=== PATIENT | female | born 1990 ===

== ENCOUNTER 2016-05-22 09:58 | Emergency (ER) | payer OTHER ==
[2016-05-22 10:04] VITALS: TEMP 98.7; O2SAT 99; BMI 35.5
[2016-05-22 10:15] VITALS: RESP 18
[2016-05-22] MEDS ORDERED: Sodium Chloride 0.9% 1,000 ML IV STA (10:52)
--- NOTE | 2016-05-22 11:01 | ED PDOC ---
HPI: Headache Time Seen by Provider: 05/22/16 10:00 Chief Complaint (Nursing): Headache Chief Complaint (Provider): Headache History Per: Patient History/Exam Limitations: no limitations Onset/Duration Of Symptoms: Days Current Symptoms Are (Timing): Still Present Severity: Moderate Quality: "Pain" Preceeding Symptoms: None Additional Complaint(s): Patient is a 26 year old female who presents to ED for dizziness with headache, nausea and abdominal pain for 1 week. Patient denies fever, vomiting or diarrhea. States unchanged PO intake. Patient notes history of dizziness in the past but normally with spontaneous resolution. Of notes, patient has a history of anemia with blood transfusion. Past Medical History Reviewed: Historical Data, Nursing Documentation, Vital Signs Vital Signs: Last Vital Signs Temp 98.7 F 05/22/16 10:03 Pulse 74 05/22/16 10:03 Resp 18 05/22/16 10:10 BP 116/58 L 05/22/16 10:03 Pulse Ox 99 05/22/16 10:03 - Medical History PMH: Anemia, Anxiety, Depression, Hypothyroidism Denies: Chronic Kidney Disease - Surgical History Surgical History: - Family History Family History: States: Unknown Family Hx, Hypertension - Living Arrangements Living Arrangements: With Family - Social History Current smoker - smoking cessation education provided: No (Quit 1 week ago ) Alcohol: None Drugs: Denies - Immunization History Hx Tetanus Toxoid Vaccination: No Hx Influenza Vaccination: No Hx Pneumococcal Vaccination: No - Home Medications Home Medications: Ambulatory Orders Medication Instructions Recorded Sertraline HCl [Zoloft] 50 mg PO DAILY 09/25/14 Docusate Sodium [Colace] 100 mg PO BID #30 sgl 09/26/14 Ferrous Sulfate 325 mg PO BID #60 tab 09/26/14 Ferrous Sulfate 325 mg PO BID #20 tablet 05/03/15 Penicillin VK [Penicillin VK Tab] 250 mg PO Q8 #15 tab 08/27/15 Famotidine [Pepcid] 20 mg PO Q12 #20 tab 09/02/15 Erythromycin 0.5% [Ilytocin] 1 inch OS HS #1 tube 12/07/15 Non-Formulary 1 ea OS HS #1 ea 12/07/15 Valacyclovir HCl [Valtrex] 1,000 mg PO TID #21 tablet 12/07/15 predniSONE [Prednisone] 60 mg PO DAILY 10 Days 12/07/15 Sertraline [Zoloft] 100 mg PO DAILY #7 tab 03/05/16 - Allergies Allergies/Adverse Reactions: Allergies Allergy/AdvReac Type Severity Reaction Status Date / Time No Known Allergies Allergy Verified 05/22/16 10:12 Review of Systems ROS Statement: Except As Marked, All Systems Reviewed And Found Negative Constitutional: Negative for: Fever, Sweats, Weakness Eyes: Negative for: Vision Change Cardiovascular: Negative for: Chest Pain, Palpitations Respiratory: Negative for: Shortness of Breath Gastrointestinal: Positive for: Nausea, Abdominal Pain. Negative for: Vomiting Genitourinary Female: Negative for: Dysuria, Hematuria Neurological: Positive for: Headache, Dizziness. Negative for: Weakness, Numbness Physical Exam - Reviewed Nursing Documentation Reviewed: Yes Vital Signs Reviewed: Yes - Physical Exam Appears: Positive for: Non-toxic, No Acute Distress Head Exam: Positive for: ATRAUMATIC Skin: Positive for: Normal Color, Warm Eye Exam: Positive for: Normal appearance, EOMI, PERRL Neck: Positive for: Normal, Painless ROM Cardiovascular/Chest: Positive for: Regular Rate, Rhythm. Negative for: Murmur Respiratory: Positive for: Normal Breath Sounds. Negative for: Respiratory Distress Gastrointestinal/Abdominal: Positive for: Normal Exam. Negative for: Tenderness , Distended Back: Positive for: Normal Inspection Extremity: Positive for: Normal ROM. Negative for: Pedal Edema, Calf Tenderness Neurologic/Psych: Positive for: Alert, administrative office specialist II-XII, Oriented, Gait (stable). Negative for: Motor/Sensory Deficits, Facial Droop - Laboratory Results Result Diagrams: 05/22/16 11:23 05/22/16 11:23 - ECG ECG: Positive for: Interpreted By Me ECG Rhythm: Positive for: Normal QRS, Normal ST Segment, Sinus Rhythm Rate: 67 O2 Sat by Pulse Oximetry: 99 (RA) Pulse Ox Interpretation: Normal Medical Decision Making Medical Decision Making: Time: 1050 Initial impression: Dizziness rule out anemia, electrolyte disturbance Initial plan: -- EKG -- CMP -- Urine preg -- Urine dip -- CBC -- Antivert, NSF and Zofran Time: 1200 Anemic: Hgb 10.5 Time: 1300 Patient on re-evaluation states she is feeling significantly better. Denies dizziness at this time. Orthostatics negative. Patient instructed to take Iron supplement and to follow up with the clinic. pt does note upon dc that a baby bottle banged into her head a few days ago however pt head is normocophealic, no hematoma or sign of injury. pt is neurologically intact. Scribe Attestation: Documented by Marie Loera acting as a scribe for Isidra Lewis MD MD Scribe Attestation: All medical record entries made by the Scribe were at my direction and personally dictated by me. I have reviewed the chart and agree that the record accurately reflects my personal performance of the history, physical exam, medical decision making, and the department course for this patient. I have also personally directed, reviewed, and agree with the discharge instructions and disposition. Disposition - Clinical Impression Clinical Impression: Anemia, iron deficiency, Dizziness - Patient ED Disposition Is Patient to be Admitted: No Counseled Patient/Family Regarding: Studies Performed, Diagnosis, Need For Followup - Disposition Referrals: [facility] [Outside] [facility] [Outside] FAMILY PROVIDER,NO [Primary Care Provider] - Disposition: Routine/Home Disposition Time: 12:00 Condition: GOOD Additional Instructions: follow up with your primary doctor in 2 days. take iron tablets for anemia. return to the ED with any worsening or concerning symptoms. Instructions: Dizziness (ED), Anemia (ED)
[2016-05-22 11:31] LABS: BASO % 0.7 % (0.0-2.0); EOS # 0.1 K/uL (0.0-0.7); EOS % 2.1 % (0.0-4.0); HEMATOCRIT 32.4 % (34.0-47.0); LYMPH # 1.9 K/uL (1.0-4.3); LYMPH % 31.2 % (20.0-40.0); MEAN CELL VOLUME 77.6 fl (81.0-99.0); MEAN CORPUSCULAR HEMOGLOBIN 25.2 pg (27.0-31.0); MEAN CORPUSCULAR HGB CONC 32.4 g/dL (33.0-37.0); MEAN PLATELET VOLUME 9.3 fl (7.2-11.7); MONO # 0.5 K/uL (0.0-0.8); MONO % 8.7 % (0.0-10.0); NEUT # 3.5 K/uL (1.8-7.0); NEUT % 57.3 % (50.0-75.0); NRBC % 0.1 % (0.0-0.0); RED CELL DISTRIBUTION WIDTH 15.7 % (11.5-14.5); WHITE BLOOD COUNT 6.1 K/uL (4.8-10.8)
[2016-05-22 11:46] LABS: ALB/GLOB RATIO 1.3 (1.0-2.1); ALKALINE PHOSPHATASE 61 U/L (38-126); ALT/SGPT 27 U/L (9-52); AST/SGOT 37 U/L (14-36); BILIRUBIN,TOTAL 0.8 mg/dl (0.2-1.3); BLOOD UREA NITROGEN 12 mg/dl (7-17); CALCIUM 9.5 mg/dL (8.4-10.2); CARBON DIOXIDE 26 mmol/L (22-30); CHLORIDE 103 mmol/L (98-107); GFR AFRICAN-AMERICAN > 60; GLUCOSE,RANDOM 92 mg/dL (65-105); POTASSIUM 3.9 MMOL/L (3.6-5.0); SODIUM 138 mmol/l (132-148); TOTAL PROTEIN 7.9 G/DL (6.3-8.2)
[2016-05-22 13:10] VITALS: BP 110/56
[2016-05-22 13:19] VITALS: PULSE 67
--- NOTE | 2016-05-23 08:06 | CARD ---
APPROVED REPORT EKG Measurement Heart [id number] <Conclusion> Normal sinus rhythm Normal ECG
== END 2016-05-22 13:18 | disposition home or self-care (01) ==
LOC: H.ER 09:58
DX: R42 Dizziness and giddiness (principal); D50.9 Iron deficiency anemia, unspecified; E03.9 Hypothyroidism, unspecified; R51 Headache

== ENCOUNTER 2016-11-10 19:55 | Emergency (ER) | payer OTHER ==
[2016-11-10 19:55] VITALS: BMI 35.5
[2016-11-10 20:00] VITALS: RESP 16
--- NOTE | 2016-11-10 20:40 | ED PDOC ---
HPI: Abdomen Time Seen by Provider: 11/10/16 20:04 Chief Complaint (Nursing): Abdominal Pain Chief Complaint (Provider): Abdominal Pain History Per: Patient History/Exam Limitations: no limitations Onset/Duration Of Symptoms: Intermittent Episodes (x 1 week) Current Symptoms Are (Timing): Still Present Associated Symptoms: Nausea, Vomiting Additional Complaint(s): Megan is a 26 y/o female who presents to the ED complaining of lower abdominal pain for 1 week. Pain is intermittent. She does have nausea and vomiting at times. States having chronic anemia so she has intermittent dizziness, which is not a new problem. Not on an iron supplement. Unsure whether or not she could be . Patient has not used any contraception recently. Denies fever, dysuria, and vaginal bleeding. Admits she took Advil for her abdominal pain. No PMD or OBGYN Past Medical History Reviewed: Historical Data, Nursing Documentation, Vital Signs Vital Signs: Last Vital Signs Temp 98.6 F 11/10/16 19:57 Pulse 80 11/10/16 19:57 Resp 16 11/10/16 19:57 BP 125/84 11/10/16 19:57 Pulse Ox 99 11/11/16 00:06 - Medical History PMH: Anemia, Anxiety, Depression, Hypothyroidism Denies: Chronic Kidney Disease - Surgical History Surgical History: Other surgeries: DNC x multiple - Family History Family History: States: Unknown Family Hx, Hypertension - Immunization History Hx Tetanus Toxoid Vaccination: No Hx Influenza Vaccination: No Hx Pneumococcal Vaccination: No - Home Medications Home Medications: Ambulatory Orders Medication Instructions Recorded Sertraline HCl [Zoloft] 50 mg PO DAILY 09/25/14 Docusate Sodium [Colace] 100 mg PO BID #30 sgl 09/26/14 Ferrous Sulfate 325 mg PO BID #60 tab 09/26/14 Ferrous Sulfate 325 mg PO BID #20 tablet 05/03/15 Penicillin VK [Penicillin VK Tab] 250 mg PO Q8 #15 tab 08/27/15 Famotidine [Pepcid] 20 mg PO Q12 #20 tab 09/02/15 Erythromycin 0.5% [Ilytocin] 1 inch OS HS #1 tube 12/07/15 Non-Formulary 1 ea OS HS #1 ea 12/07/15 Valacyclovir HCl [Valtrex] 1,000 mg PO TID #21 tablet 12/07/15 predniSONE [Prednisone] 60 mg PO DAILY 10 Days 12/07/15 Sertraline [Zoloft] 100 mg PO DAILY #7 tab 03/05/16 - Allergies Allergies/Adverse Reactions: Allergies Allergy/AdvReac Type Severity Reaction Status Date / Time No Known Allergies Allergy Verified 11/10/16 20:00 Review of Systems ROS Statement: Except As Marked, All Systems Reviewed And Found Negative Constitutional: Negative for: Fever, Chills Gastrointestinal: Positive for: Nausea, Vomiting, Abdominal Pain Genitourinary Female: Negative for: Dysuria, Vaginal Bleeding Physical Exam - Reviewed Nursing Documentation Reviewed: Yes Vital Signs Reviewed: Yes - Physical Exam Appears: Positive for: Non-toxic, No Acute Distress Head Exam: Positive for: ATRAUMATIC, NORMAL INSPECTION, NORMOCEPHALIC Skin: Positive for: Normal Color, Warm, Dry Eye Exam: Positive for: EOMI, Normal appearance, PERRL Neck: Positive for: Normal, Painless ROM, Supple Cardiovascular/Chest: Positive for: Regular Rate, Rhythm. Negative for: Murmur Respiratory: Positive for: Normal Breath Sounds. Negative for: Accessory Muscle Use, Respiratory Distress Gastrointestinal/Abdominal: Positive for: Normal Exam, Bowel Sounds, Soft. Negative for: Tenderness Back: Positive for: Normal Inspection. Negative for: L CVA Tenderness, R CVA Tenderness, Vertebral Tenderness Extremity: Positive for: Normal ROM. Negative for: Calf Tenderness, Deformity Neurologic/Psych: Positive for: Alert, Oriented, Gait (steady) - Laboratory Results Result Diagrams: 11/10/16 20:50 11/10/16 20:50 - ECG O2 Sat by Pulse Oximetry: 99 (RA) Pulse Ox Interpretation: Normal Medical Decision Making Medical Decision Making: Urine dip positive for * Patient is a 26 y/o female Impression: Abdominal Pain during Differentials include but are not limited to: UTI, ectopic , and threatened miscarriage Time: 20:31 Initial Plan: --BMP -- serum -- test --ED Urine dipstick --CBC --blood type/screen --US OB Transvaginal US Impression: No intrauterine gestation. DDX: Early IUP, missed , ectopic . Scribe Attestation: Documented by Jessica Matute, acting as a scribe for Chriss Harper MD Provider Scribe Attestation: All medical record entries made by the Scribe were at my direction and personally dictated by me. I have reviewed the chart and agree that the record accurately reflects my personal performance of the history, physical exam, medical decision making, and the department course for this patient. I have also personally directed, reviewed, and agree with the discharge instructions and disposition. Disposition - Clinical Impression Clinical Impression: Abdominal pain during - Patient ED Disposition Is Patient to be Admitted: No Doctor Will See Patient In The: Office Counseled Patient/Family Regarding: Studies Performed, Diagnosis, Need For Followup - Disposition Referrals: [facility] [Outside] Disposition: Routine/Home Disposition Time: 00:06 Condition: GOOD Additional Instructions: Return to ER in 2-3 days for recheck. Follow up with your PCP in 3 days. Instructions: Abdominal Pain in (ED)
[2016-11-10 21:04] LABS: BASO % 0.6 % (0.0-2.0); EOS # 0.3 K/uL (0.0-0.7); EOS % 3.4 % (0.0-4.0); HEMATOCRIT 31.5 % (34.0-47.0); LYMPH # 3.1 K/uL (1.0-4.3); LYMPH % 38.4 % (20.0-40.0); MEAN CELL VOLUME 78.6 fl (81.0-99.0); MEAN CORPUSCULAR HEMOGLOBIN 25.7 pg (27.0-31.0); MEAN CORPUSCULAR HGB CONC 32.7 g/dL (33.0-37.0); MONO # 0.5 K/uL (0.0-0.8); MONO % 6.7 % (0.0-10.0); NEUT # 4.1 K/uL (1.8-7.0); NEUT % 50.9 % (50.0-75.0); NRBC % 0.1 % (0.0-0.0); RED CELL DISTRIBUTION WIDTH 16.7 % (11.5-14.5)
[2016-11-10 21:23] LABS: BLOOD UREA NITROGEN 10 mg/dl (7-17); CALCIUM 9.5 mg/dL (8.4-10.2); CARBON DIOXIDE 22 mmol/L (22-30); CHLORIDE 103 mmol/L (98-107); GFR AFRICAN-AMERICAN > 60; GLUCOSE,RANDOM 100 mg/dL (65-105); POTASSIUM 3.5 MMOL/L (3.6-5.0); SODIUM 136 mmol/l (132-148)
--- NOTE | 2016-11-10 23:49 | US ---
EXAM: US First Trimester, Transabdominal CLINICAL HISTORY: 26 years old, female; Pain; Other: Pelvic pain; Gestational age or lmp: Pt unsure; ; Additional info: Lower abd pain TECHNIQUE: Real-time transabdominal obstetrical ultrasound of the maternal pelvis and a first trimester with image documentation. COMPARISON: No relevant prior studies available. FINDINGS: Gestation: No intrauterine gestational sac. Uterus/cervix: Endometrium: 0.5 cm in thickness. Closed cervix. Ovaries: RIGHT ovary: Normal. LEFT ovary: Not visualized. No adnexal masses. Free fluid: No significant free fluid. IMPRESSION: 1. No intrauterine gestation. DDX: Early IUP, missed , ectopic . EXAM: US , Transvaginal CLINICAL HISTORY: 26 years old, female; Pain; Other: Pelvic pain; Gestational age or lmp: Pt unsure; ; Additional info: Lower abd pain TECHNIQUE: Real-time transvaginal obstetrical ultrasound of the maternal pelvis and a first trimester with image documentation. Transvaginal imaging was used for better evaluation of the fetus and adnexa. COMPARISON: No relevant prior studies available. FINDINGS: Gestation: No intrauterine gestational sac. Uterus/cervix: Endometrium: 0.5 cm in thickness. Closed cervix. Ovaries: RIGHT ovary: Normal. LEFT ovary: Not visualized. No adnexal masses. Free fluid: No significant free fluid.
[2016-11-11 00:43] VITALS: BP 122/74; PULSE 81; TEMP 98.3; O2SAT 100
== END 2016-11-11 00:40 | disposition home or self-care (01) ==
LOC: H.ER 19:55
DX: O21.9 Vomiting of pregnancy, unspecified (principal); E03.9 Hypothyroidism, unspecified; F32.9 Major depressive disorder, single episode, unspecified; F41.9 Anxiety disorder, unspecified

== ENCOUNTER 2016-11-14 09:08 | Emergency (ER) | payer OTHER ==
[2016-11-14 09:10] VITALS: O2SAT 98; BMI 33.3
--- NOTE | 2016-11-14 09:28 | ED PDOC ---
HPI: Abdomen Time Seen by Provider: 11/14/16 09:16 Chief Complaint (Nursing): Abdominal Pain History Per: Patient (is brought by EMS because of concerns over whether she is . Patient was seen here several ago where she was found to have a positive but the US did not reveal IUP. She states she was told to return if her pain persisted.) History/Exam Limitations: no limitations Outside of US travel?: No Current Symptoms Are (Timing): Still Present Past Medical History Reviewed: Historical Data, Nursing Documentation, Vital Signs Vital Signs: Last Vital Signs Temp 98.6 F 11/14/16 09:09 Pulse 83 11/14/16 09:09 Resp 20 11/14/16 09:09 BP 120/71 11/14/16 09:09 Pulse Ox 98 11/14/16 11:48 - Medical History PMH: Anemia, Anxiety, Depression, Hypothyroidism Denies: Chronic Kidney Disease - Surgical History Surgical History: No Surg Hx, - Family History Family History: States: Unknown Family Hx, Hypertension - Living Arrangements Living Arrangements: With Family - Immunization History Hx Tetanus Toxoid Vaccination: No Hx Influenza Vaccination: No Hx Pneumococcal Vaccination: No - Home Medications Home Medications: Ambulatory Orders Medication Instructions Recorded Sertraline HCl [Zoloft] 50 mg PO DAILY 09/25/14 Docusate Sodium [Colace] 100 mg PO BID #30 sgl 09/26/14 Ferrous Sulfate 325 mg PO BID #60 tab 09/26/14 Ferrous Sulfate 325 mg PO BID #20 tablet 05/03/15 Penicillin VK [Penicillin VK Tab] 250 mg PO Q8 #15 tab 08/27/15 Famotidine [Pepcid] 20 mg PO Q12 #20 tab 09/02/15 Erythromycin 0.5% [Ilytocin] 1 inch OS HS #1 tube 12/07/15 Non-Formulary 1 ea OS HS #1 ea 12/07/15 Valacyclovir HCl [Valtrex] 1,000 mg PO TID #21 tablet 12/07/15 predniSONE [Prednisone] 60 mg PO DAILY 10 Days 12/07/15 Sertraline [Zoloft] 100 mg PO DAILY #7 tab 03/05/16 - Allergies Allergies/Adverse Reactions: Allergies Allergy/AdvReac Type Severity Reaction Status Date / Time No Known Allergies Allergy Verified 11/14/16 09:13 Review of Systems ROS Statement: Except As Marked, All Systems Reviewed And Found Negative Constitutional: Negative for: Fever, Chills Gastrointestinal: Positive for: Abdominal Pain Physical Exam - Reviewed Nursing Documentation Reviewed: Yes Vital Signs Reviewed: Yes - Physical Exam Appears: Positive for: Well, Non-toxic, No Acute Distress Head Exam: Positive for: ATRAUMATIC, NORMAL INSPECTION, NORMOCEPHALIC Skin: Positive for: Normal Color, Warm, DRY Eye Exam: Positive for: EOMI, Normal appearance, PERRL ENT: Positive for: Normal ENT Inspection Neck: Positive for: Normal, Painless ROM Cardiovascular/Chest: Positive for: Regular Rate, Rhythm Respiratory: Positive for: Normal Breath Sounds. Negative for: Decreased Breath Sounds Gastrointestinal/Abdominal: Positive for: Normal Exam, Bowel Sounds, Soft. Negative for: Tenderness, Distended, Guarding, Rebound Back: Positive for: Normal Inspection Extremity: Positive for: Normal ROM Neurologic/Psych: Positive for: Alert, Oriented - Laboratory Results Result Diagrams: 11/14/16 09:46 11/14/16 09:46 - ECG O2 Sat by Pulse Oximetry: 98 Medical Decision Making Medical Decision Making: past ER visit reviewed. Will repeat labs. case d/w Dr. Madrigal. Will add LFTs and TV US ultrasound report reviewed with Dr. Madrigal and patient. Advised repeat b-hcg in 3 days Disposition - Clinical Impression Clinical Impression: Threatened - Patient ED Disposition Is Patient to be Admitted: No Doctor Will See Patient In The: Office Counseled Patient/Family Regarding: Diagnosis - Disposition [facility] [Outside] Disposition: Routine/Home Disposition Time: 14:00 Condition: STABLE Additional Instructions: REturn to the ER for repeat B-HCG level. Instructions: Threatened Miscarriage (ED) Forms: [employer] (Gambian) - POA Present On Arrival: None
[2016-11-14 09:51] LABS: BASO % 0.7 % (0.0-2.0); EOS # 0.2 K/uL (0.0-0.7); EOS % 3.4 % (0.0-4.0); HEMATOCRIT 33.3 % (34.0-47.0); LYMPH # 2.1 K/uL (1.0-4.3); LYMPH % 30.5 % (20.0-40.0); MEAN CORPUSCULAR HEMOGLOBIN 25.8 pg (27.0-31.0); MEAN CORPUSCULAR HGB CONC 32.7 g/dL (33.0-37.0); MEAN PLATELET VOLUME 8.9 fl (7.2-11.7); MONO # 0.4 K/uL (0.0-0.8); NEUT % 59.4 % (50.0-75.0); NRBC % 0.1 % (0.0-0.0); RED CELL DISTRIBUTION WIDTH 17.4 % (11.5-14.5); WHITE BLOOD COUNT 6.8 K/uL (4.8-10.8)
[2016-11-14 10:00] LABS: BLOOD UREA NITROGEN 7 mg/dl (7-17); CALCIUM 9.3 mg/dL (8.4-10.2); CARBON DIOXIDE 23 mmol/L (22-30); CHLORIDE 105 mmol/L (98-107); GFR AFRICAN-AMERICAN > 60; GLUCOSE,RANDOM 127 mg/dL (65-105); POTASSIUM 3.7 MMOL/L (3.6-5.0); SODIUM 138 mmol/l (132-148)
[2016-11-14 12:21] LABS: ALB/GLOB RATIO 1.4 (1.0-2.1); BILIRUBIN,TOTAL 0.5 mg/dl (0.2-1.3); TOTAL PROTEIN 7.4 G/DL (6.3-8.2)
--- NOTE | 2016-11-14 13:45 | US ---
HISTORY: Per Dr. Madrigal COMPARISON: Comparison made with prior pelvic ultrasound 11/10/2016 TECHNIQUE: Transvaginal sonographic evaluation of the pelvis performed. FINDINGS: Uterus is anteverted measuring s approximately 12.7 by x 7.3 x 5.3 cm. Cm. Of. There is a small approximately 4.7 mm anechoic focus within the endometrial canal that is of uncertain etiology. This could represent small amount of fluid however early gestational sac cannot be excluded. . The possibility of an ectopic also cannot be excluded and therefore followup serial serum beta HCG and serial ultrasound recommended. Right ovary measures approximately 2.4 x 1.8 x 1.0 cm exhibits arterial flow. Small echogenic focus seen within the right ovary measuring approximately largest approximately 6 mm x 7 mm x 4 mm. . There is no posterior acoustic shadowing and this could represent a small resolving hemorrhagic cyst or possibly fat. Followup studies at interval recommended to assess stability. The left ovary measures 2.7 x 3.5 x 1.7 cm and also exhibits arterial flow. IMPRESSION: There is small anechoic fluid collection within the endometrial canal that could represent a very early gestational sac which measures approximately 4.7 mm and is out of range to appropriately date. No evidence of yolk sac or pole. Possibility of an ectopic therefore cannot be excluded on this study. Recommend followup serial serum beta HCG and serial pelvic ultrasounds . . See above discussion for additional details, findings and recommendations.
[2016-11-14 14:47] VITALS: BP 118/75; PULSE 68; RESP 14; TEMP 98
== END 2016-11-14 14:37 | disposition home or self-care (01) ==
LOC: H.ER 09:08
DX: O20.0 Threatened abortion (principal); Z3A.00 Weeks of gestation of pregnancy not specified

== ENCOUNTER 2016-11-16 20:52 | Emergency (ER) | payer OTHER ==
[2016-11-16 20:52] VITALS: BMI 33.3
[2016-11-16 20:55] VITALS: BP 133/85; PULSE 89; RESP 16; TEMP 99.1; O2SAT 100
--- NOTE | 2016-11-16 21:14 | ED PDOC ---
HPI: Abdomen Chief Complaint (Provider): Abdominal Pain History Per: Patient History/Exam Limitations: no limitations Onset/Duration Of Symptoms: Days, Waxing/Waning Outside of US travel?: No Current Symptoms Are (Timing): Intermittent Episodes Severity: Severe Pain Scale Rating Of: 8 Location Of Pain/Discomfort: Suprapubic Quality Of Discomfort: Sharp, Cramping, Other Associated Symptoms: denies: Fever, Chills, Vomiting, Diarrhea Exacerbating Factors: None Alleviating Factors: None Last Menstral Period: unsure : 7 Para: 2 Miscarriage: 1 <Akash Arciniega - Last Filed: 11/17/16 00:27> <Sunil Dai - Last Filed: 11/17/16 05:17> Time Seen by Provider: 11/16/16 21:03 Chief Complaint (Nursing): Abdominal Pain Additional Complaint(s): 26 yo presents to ED c/o lower abdominal pain associated w minimal hematuria. She states concern over ectopic . Pt seen in ED previously, shown to have positive but US did not reveal IUP. She states she was told to return if her pain persisted. Tonight, she states pain/bleeding waxes and wanes, w pain being 8/10 at it's worse. LMP is believed to be sometime in September, but she is unsure as to when. Normal period is regular every month, 4-5 days, 3-5 pads per day. Some nausea, but denies vomiting, diarrhea. Denies fevers/chills, chest pain, SOB, dyspnea, cough, dysuria, or melena. (Akash Arciniega) Supervising Attending Note - Attestation: I have personally seen and examined this patient.: Yes I have fully participated in the care of the patient.: Yes I have reviewed all pertinent clinical information: Yes <Sunil Dai - Last Filed: 11/17/16 05:17> Past Medical History Reviewed: Historical Data, Nursing Documentation, Vital Signs - Medical History PMH: Anemia, Anxiety, Depression, Hypothyroidism Denies: Chronic Kidney Disease - Surgical History Surgical History: - Family History Family History: States: Unknown Family Hx, Hypertension - Immunization History Hx Tetanus Toxoid Vaccination: No Hx Influenza Vaccination: No Hx Pneumococcal Vaccination: No <Akash Arciniega - Last Filed: 11/17/16 00:27> <Sunil Dai - Last Filed: 11/17/16 05:17> Vital Signs: Last Vital Signs Temp 99.1 F 11/16/16 20:53 Pulse 89 11/16/16 20:53 Resp 16 11/16/16 20:53 BP 133/85 11/16/16 20:53 Pulse Ox 100 11/17/16 00:31 - Home Medications Home Medications: Ambulatory Orders Medication Instructions Recorded Sertraline HCl [Zoloft] 50 mg PO DAILY 09/25/14 Docusate Sodium [Colace] 100 mg PO BID #30 sgl 09/26/14 Ferrous Sulfate 325 mg PO BID #60 tab 09/26/14 Ferrous Sulfate 325 mg PO BID #20 tablet 05/03/15 Penicillin VK [Penicillin VK Tab] 250 mg PO Q8 #15 tab 08/27/15 Famotidine [Pepcid] 20 mg PO Q12 #20 tab 09/02/15 Erythromycin 0.5% [Ilytocin] 1 inch OS HS #1 tube 12/07/15 Non-Formulary 1 ea OS HS #1 ea 12/07/15 Valacyclovir HCl [Valtrex] 1,000 mg PO TID #21 tablet 12/07/15 predniSONE [Prednisone] 60 mg PO DAILY 10 Days 12/07/15 Sertraline [Zoloft] 100 mg PO DAILY #7 tab 03/05/16 Acetaminophen [Pain Reliever] 500 mg PO Q4 #30 tablet 11/17/16 - Allergies Allergies/Adverse Reactions: Allergies Allergy/AdvReac Type Severity Reaction Status Date / Time No Known Allergies Allergy Verified 11/14/16 09:13 Review of Systems ROS Statement: Except As Marked, All Systems Reviewed And Found Negative (see HPI) <Akash Arciniega T - Last Filed: 11/17/16 00:27> Physical Exam - Physical Exam Appears: Positive for: No Acute Distress Head Exam: Positive for: ATRAUMATIC, NORMOCEPHALIC Skin: Positive for: Normal Color, Warm, Dry Eye Exam: Positive for: EOMI, PERRL ENT: Positive for: Normal ENT Inspection Neck: Positive for: Normal, Painless ROM Cardiovascular/Chest: Positive for: Regular Rate, Rhythm. Negative for: Edema Respiratory: Positive for: Normal Breath Sounds. Negative for: Rales, Wheezing Gastrointestinal/Abdominal: Positive for: Normal Exam, Bowel Sounds, Soft, Tenderness (suprapubic) Back: Negative for: L CVA Tenderness, R CVA Tenderness Extremity: Negative for: Pedal Edema Neurologic/Psych: Positive for: Alert, athletic trainer II-XII, Oriented <Akash Arciniega - Last Filed: 11/17/16 00:27> - ECG O2 Sat by Pulse Oximetry: 100 <Akash Arciniega - Last Filed: 11/17/16 00:27> <Sunil Dai - Last Filed: 11/17/16 05:17> - Progress ED Course And Treament: 26 yo presents to ED c/o lower abdominal pain associated w minimal hematuria -Udip -Upreg -B-hCG -Transvaginal U/S Update 2330: -Intrauterine with apparent low implantation, of uncertain viability. Recommend followup. -Will be discharged to home with instructions to follow up with her PMD and OB/ [facility] (Akash Arciniega) Disposition - Disposition Disposition: Routine/Home Disposition Time: 23:30 <Akash Arciniega - Last Filed: 11/17/16 00:27> <Sunil Dai - Last Filed: 11/17/16 05:17> - Clinical Impression Clinical Impression: Threatened - Disposition [facility]] Condition: STABLE Prescriptions: Acetaminophen [Pain Reliever] 500 mg PO Q4 #30 tablet Instructions: Threatened Miscarriage (ED) Forms: [employer] (Palestinian)
--- NOTE | 2016-11-16 23:40 | US ---
EXAM: US , Transvaginal CLINICAL HISTORY: 26 years old, female; Signs and symptoms; Lmp or gestational age (in weeks): Unsure; Other: Cramping and bleeding; ; Additional info: R/O ectopic TECHNIQUE: Real-time transvaginal obstetrical ultrasound of the maternal pelvis and a first trimester with image documentation. Transvaginal imaging was used for better evaluation of the fetus and adnexa. COMPARISON: US - OB TRANSVAGINAL 11/10/2016 10:50:23 PM FINDINGS: Gestation: Gestational sac within lower body of uterus. Yolk sac. No pole. Mean sac diameter of 0.63 cm, out of range. Uterus/cervix: No subchorionic hemorrhage. No cervical dilatation or effacement. Ovaries: Normal ovaries. No adnexal masses. Free fluid: No significant free fluid. IMPRESSION: 1. Intrauterine with apparent low implantation, of uncertain viability. Recommend followup.
== END 2016-11-17 00:16 | disposition home or self-care (01) ==
LOC: H.ER 20:52
DX: O20.0 Threatened abortion (principal); E03.9 Hypothyroidism, unspecified; F32.9 Major depressive disorder, single episode, unspecified; F41.9 Anxiety disorder, unspecified

== ENCOUNTER 2016-12-29 05:44 | Emergency (ER) | payer OTHER ==
[2016-12-29 05:44] VITALS: BMI 33.3
[2016-12-29 05:48] VITALS: BP 140/97; PULSE 73; RESP 18; TEMP 98.5; O2SAT 100
--- NOTE | 2016-12-29 06:46 | ED PDOC ---
HPI: Chest Pain Time Seen by Provider: 12/29/16 05:56 Chief Complaint (Nursing): Chest Pain History Per: Patient History/Exam Limitations: no limitations Additional Complaint(s): 26 y/o F c/o right sided chest pain that began last night. Pt reports having right back pain that radiated anteriorly to right chest; pain is sharp, 8/10 intensity, seems to be alleviating, now radiates to right arm and neck . Pt also report non-productive cough for several days. Pt smokes 1 ppd and had a miscarriage ~ 1 month ago. Pt denies fever, nasal congestion, palpitations, abdominal pain, N/V/D, recent travel or control pills intake. NKDA Medications: Zoloft and Xanax every day. PMHx: Anemia. Anxiety and depression. PSHx: . FHx: extensive for HTN and DM. SHx: Pt smokes 1 ppd of cigarettes. No alcohol or rec drugs. OBGYN: . Past Medical History Vital Signs: Last Vital Signs Temp 98.5 F 12/29/16 05:46 Pulse 73 12/29/16 05:46 Resp 18 12/29/16 05:46 BP 140/97 H 12/29/16 05:46 Pulse Ox 100 12/29/16 05:46 - Medical History PMH: Anemia, Anxiety, Depression Denies: Chronic Kidney Disease - Surgical History Surgical History: - Family History Family History: States: Unknown Family Hx, Hypertension - Social History Current smoker - smoking cessation education provided: Yes SMOKER/PACKS PER DAY:: 1 Alcohol: None Drugs: Denies - Immunization History Hx Tetanus Toxoid Vaccination: No Hx Influenza Vaccination: No Hx Pneumococcal Vaccination: No - Home Medications Home Medications: Ambulatory Orders Medication Instructions Recorded Sertraline HCl [Zoloft] 50 mg PO DAILY 09/25/14 Docusate Sodium [Colace] 100 mg PO BID #30 sgl 09/26/14 Ferrous Sulfate 325 mg PO BID #60 tab 09/26/14 Ferrous Sulfate 325 mg PO BID #20 tablet 05/03/15 Penicillin VK [Penicillin VK Tab] 250 mg PO Q8 #15 tab 08/27/15 Famotidine [Pepcid] 20 mg PO Q12 #20 tab 09/02/15 Erythromycin 0.5% [Ilytocin] 1 inch OS HS #1 tube 12/07/15 Non-Formulary 1 ea OS HS #1 ea 12/07/15 Valacyclovir HCl [Valtrex] 1,000 mg PO TID #21 tablet 12/07/15 predniSONE [Prednisone] 60 mg PO DAILY 10 Days tab 12/07/15 Sertraline [Zoloft] 100 mg PO DAILY #7 tab 03/05/16 Acetaminophen [Pain Reliever] 500 mg PO Q4 #30 tablet 11/17/16 - Allergies Allergies/Adverse Reactions: Allergies Allergy/AdvReac Type Severity Reaction Status Date / Time No Known Allergies Allergy Verified 11/14/16 09:13 Curb-65 Severity Score - CURB-65 Severity Score Confusion: No Respiratory Rate greater than/equal to 30: No Systolic BP <90 or Diastolic BP less than/equal 60mmHg: No Age >64: No Curb-65 Score: 0 Percentage 30-day mortality: 0.6% Wells Criteria for PE - Wells Criteria for Pulmonary Embolism Clinical Signs and Symptoms of DVT: No P.E is #1 Diagnosis, or Equally Likely: No Heart Rate >100: No Previous, objectively diagnosed PE or DVT: No Hemoptysis: No Malignancy w/treatment within 6 months, or palliative: No Total Score: 0 Review of Systems Constitutional: Negative for: Fever, Chills Cardiovascular: Positive for: Chest Pain. Negative for: Palpitations, Orthopnea Respiratory: Positive for: Cough. Negative for: Shortness of Breath, Hemoptysis , Wheezing Gastrointestinal: Negative for: Nausea, Vomiting, Abdominal Pain Musculoskeletal: Positive for: Back Pain. Negative for: Shoulder Pain Skin: Negative for: Rash Physical Exam - Physical Exam Appears: Positive for: Well, Uncomfortable Head Exam: Positive for: ATRAUMATIC, NORMAL INSPECTION Skin: Positive for: Normal Color Eye Exam: Positive for: Normal appearance, EOMI, PERRL ENT: Positive for: Normal ENT Inspection Cardiovascular/Chest: Positive for: Regular Rate, Rhythm Respiratory: Positive for: Normal Breath Sounds Gastrointestinal/Abdominal: Positive for: Normal Exam, Bowel Sounds, Soft. Negative for: Tenderness Back: Positive for: Other (Pain is reproducible upon palpation of right upper back and right costal areas.) - ECG O2 Sat by Pulse Oximetry: 100 Medical Decision Making Medical Decision Makin26 y/o obese F presenting with right sided chest pain. Plan: --EKG --CBC --BMP --Troponin --D-dimer --Coagulation profile --Chest X ray --Urine BHCG --Urinalysis --Toradol 06:55 Will transfer of care to Dr Dimas. Disposition - Clinical Impression Clinical Impression: Chest pain - Patient ED Disposition Is Patient to be Admitted: Transfer of Care - Disposition Disposition: Transfer of Care Disposition Time: 06:57 Condition: FAIR
--- NOTE | 2016-12-29 07:19 | ED PDOC ---
- Laboratory Results Result Diagrams: 12/29/16 07:55 12/29/16 07:55 - ECG O2 Sat by Pulse Oximetry: 100 Medical Decision Making Medical Decision Making: Time: 07:00 Plan: --Patient signed out to me by Dr. Gamez, pending labs and reevaluation. Time: 8:26 Chest X-Ray: FINDINGS: LUNGS: No active pulmonary disease. PLEURA: No significant pleural effusion identified, no pneumothorax apparent. CARDIOVASCULAR: Normal. OSSEOUS STRUCTURES: No significant abnormalities. VISUALIZED UPPER ABDOMEN: Normal. OTHER FINDINGS: None. IMPRESSION: No active disease. Clinical Impression: Atypical chest pain Upon provider reevaluation patient is medically stable, and requires no further treatment in the ED at this time. Patient will be discharged with Rx for Naprosyn. Counseling was provided and all questions were answered regarding diagnosis and need for follow up with PMD. There is agreement to discharge plan. Return if symptoms persist or worsen. --- Scribe Attestation: Documented by Yovany Cannon acting as a scribe for Sarah Dimas MD. Scribe Attestation: All medical record entries made by the Scribe were at my direction and personally dictated by me. I have reviewed the chart and agree that the record accurately reflects my personal performance of the history, physical exam, medical decision making, and the department course for this patient. I have also personally directed, reviewed, and agree with the discharge instructions and disposition. Disposition Counseled Patient/Family Regarding: Studies Performed, Diagnosis, Need For Followup, Rx Given - Clinical Impression Clinical Impression: Atypical chest pain - POA Present On Arrival: None - Disposition Referrals: [facility] [Outside] Disposition: Routine/Home Disposition Time: 09:58 Condition: STABLE Prescriptions: Naproxen [Naprosyn] 500 mg PO BID PRN #15 tablet PRN Reason: Pain, Moderate (4-7) Instructions: Chest Pain (ED) Forms: [employer] (Divehi)
[2016-12-29 08:15] LABS: BASO # 0.1 K/uL (0.0-0.2); BASO % 0.8 % (0.0-2.0); EOS # 0.2 K/uL (0.0-0.7); EOS % 2.7 % (0.0-4.0); HEMATOCRIT 31.4 % (34.0-47.0); LYMPH # 2.4 K/uL (1.0-4.3); LYMPH % 36.7 % (20.0-40.0); MEAN CELL VOLUME 75.6 fl (81.0-99.0); MEAN CORPUSCULAR HEMOGLOBIN 25.8 pg (27.0-31.0); MEAN CORPUSCULAR HGB CONC 34.1 g/dL (33.0-37.0); MEAN PLATELET VOLUME 8.6 fl (7.2-11.7); MONO # 0.4 K/uL (0.0-0.8); MONO % 6.5 % (0.0-10.0); NEUT # 3.5 K/uL (1.8-7.0); NEUT % 53.3 % (50.0-75.0); NRBC % 0.1 % (0.0-0.0); RED CELL DISTRIBUTION WIDTH 16.4 % (11.5-14.5); WHITE BLOOD COUNT 6.5 K/uL (4.8-10.8)
[2016-12-29 08:19] LABS: RBC URINE < 1 /hpf (0-3); URINE BACTERIA RARE (<OCC); URINE BILIRUBIN NEGATIVE (NEGATIVE); URINE BLOOD NEGATIVE (NEGATIVE); URINE COLOR STRAW (YELLOW); URINE GLUCOSE (UA) NEG (Normal); URINE KETONE NEGATIVE (NEGATIVE); URINE LEUKOCYTE ESTERASE NEG Leu/uL (Negative); URINE PROTEIN NEGATIVE (NEGATIVE); URINE UROBILINOGEN 0.2-1.0 mg/dL (0.2-1.0); WBC URINE < 1 /hpf (0-5)
--- NOTE | 2016-12-29 08:28 | RAD ---
HISTORY: chest pain COMPARISON: 08/16/2009 FINDINGS: LUNGS: No active pulmonary disease. PLEURA: No significant pleural effusion identified, no pneumothorax apparent. CARDIOVASCULAR: Normal. OSSEOUS STRUCTURES: No significant abnormalities. VISUALIZED UPPER ABDOMEN: Normal. OTHER FINDINGS: None. IMPRESSION: No active disease.
[2016-12-29 08:40] LABS: BLOOD UREA NITROGEN 11 mg/dl (7-17); CALCIUM 9.2 mg/dL (8.4-10.2); CARBON DIOXIDE 23 mmol/L (22-30); CHLORIDE 104 mmol/L (98-107); GFR AFRICAN-AMERICAN > 60; GLUCOSE,RANDOM 99 mg/dL (65-105); POTASSIUM 4.3 MMOL/L (3.6-5.0); SODIUM 141 mmol/l (132-148)
[2016-12-29 09:31] LABS: PARTIAL THROMBOPLASTIN TIME 33.6 Seconds (25.6-37.1)
--- NOTE | 2016-12-29 12:18 | CARD ---
APPROVED REPORT EKG Measurement Heart [id number] <Conclusion> Normal sinus rhythm with sinus arrhythmia Incomplete RBBB
== END 2016-12-29 10:21 | disposition home or self-care (01) ==
LOC: H.ER 05:44
DX: R07.89 Other chest pain (principal); F41.9 Anxiety disorder, unspecified; F32.9 Major depressive disorder, single episode, unspecified
CPT/HCPCS: 71010; 80048; 81003; 81025; 84484; 85025; 85378; 85610; 85730; 93005; 96374; 99283; J1885

== ENCOUNTER 2017-04-30 21:19 | Emergency (ER) | payer OTHER ==
[2017-04-30 21:20] VITALS: BMI 33.3
[2017-04-30 21:24] VITALS: RESP 16
--- NOTE | 2017-04-30 23:01 | ED PDOC ---
HPI: General Adult Time Seen by Provider: 04/30/17 22:25 Chief Complaint (Nursing): Headache History Per: Patient Additional Complaint(s): Pt. states since this morning she's had a gradual onset b/l retro-orbital headache associated with light sensitivity. States she's been taking Advil PM 2 tabs (400mg of advil in total each dose) with transient relief. Denies fever, head injury, sudden onset of headache, N/V, abdominal pain, trauma, visual changes. States she's had same headaches in the past but is usually relieved with Advil PM. Past Medical History Reviewed: Historical Data, Nursing Documentation, Vital Signs Vital Signs: Last Vital Signs Temp 98.0 F 04/30/17: Pulse 81 04/30/17 21:22 Resp 16 04/30/17 21:22 BP 146/95 H 04/30/17 21: Pulse Ox 98 04/30/17 23:03 - Medical History PMH: Anemia, Anxiety, Depression, Hypothyroidism Denies: Chronic Kidney Disease - Surgical History Surgical History: - Family History Family History: States: Hypertension - Immunization History Hx Tetanus Toxoid Vaccination: No Hx Influenza Vaccination: No Hx Pneumococcal Vaccination: No - Home Medications Home Medications: Ambulatory Orders Medication Instructions Recorded Sertraline HCl [Zoloft] 50 mg PO DAILY 09/25/14 Docusate Sodium [Colace] 100 mg PO BID #30 sgl 09/26/14 Ferrous Sulfate 325 mg PO BID #60 tab 09/26/14 Ferrous Sulfate 325 mg PO BID #20 tablet 05/03/15 Penicillin VK [Penicillin VK Tab] 250 mg PO Q8 #15 tab 08/27/15 Famotidine [Pepcid] 20 mg PO Q12 #20 tab 09/02/15 Erythromycin 0.5% [Ilytocin] 1 inch OS HS #1 tube 12/07/15 Non-Formulary 1 ea OS HS #1 ea 12/07/15 Valacyclovir HCl [Valtrex] 1,000 mg PO TID #21 tablet 12/07/15 predniSONE [Prednisone] 60 mg PO DAILY 10 Days tab 12/07/15 Sertraline [Zoloft] 100 mg PO DAILY #7 tab 03/05/16 Acetaminophen [Pain Reliever] 500 mg PO Q4 #30 tablet 11/17/16 Naproxen [Naprosyn] 500 mg PO BID PRN #15 tablet 12/29/16 - Allergies Allergies/Adverse Reactions: Allergies Allergy/AdvReac Type Severity Reaction Status Date / Time No Known Allergies Allergy Verified 11/14/16 09:13 Review of Systems ROS Statement: Except As Marked, All Systems Reviewed And Found Negative Neurological: Positive for: Headache Physical Exam - Physical Exam Appears: Positive for: Well, Non-toxic, No Acute Distress Head Exam: Positive for: ATRAUMATIC, NORMAL INSPECTION, NORMOCEPHALIC Skin: Positive for: Normal Color, Warm. Negative for: Rash Eye Exam: Positive for: EOMI, Normal appearance, PERRL ENT: Positive for: Normal ENT Inspection Neck: Positive for: Normal, Painless ROM Gastrointestinal/Abdominal: Positive for: Normal Exam, Soft. Negative for: Tenderness Back: Positive for: Normal Inspection Extremity: Positive for: Normal ROM Neurologic/Psych: Positive for: Alert, Oriented, Gait (steady, unassisted). Negative for: Motor/Sensory Deficits, Aphasia, Facial Droop - Laboratory Results Urine POC: Negative - ECG O2 Sat by Pulse Oximetry: 98 - Progress ED Course And Treament: Discussed need for CT and patient agrees that she does not require head CT at this time. Toradol 30mg IM, reglan 10mg PO ordered. 2349 On re-evaluation, pt. in no distress. Reports no relief in headache. CT head w/o contrast, imitrex 6mg SC ordered. Disposition - Clinical Impression Clinical Impression: Headache - Patient ED Disposition Is Patient to be Admitted: Transfer of Care (Signed out to Osito CASPER pending CT results and final disposition.) - Disposition Disposition Time: 00:00 Condition: STABLE Forms: [facility] [facility] (Arabic)
--- NOTE | 2017-05-01 00:10 | ED PDOC ---
- Laboratory Results Urine POC: Negative - ECG O2 Sat by Pulse Oximetry: 98 Pulse Ox Interpretation: Normal - Other Rad CT head X-Ray: Read By Radiologist X-Ray Interpretation: no acute finding Medical Decision Making Medical Decision Making: Case was signed out to headline writer from [facility] Garcia pending CT head. CT head is normal. Patient given prescriptions for Reglan and Naprosyn. She was advised to follow up with primary doctor. Disposition - Clinical Impression Clinical Impression: Headache - POA Present On Arrival: None - Disposition Referrals: [facility] [Outside] Disposition: Routine/Home Disposition Time: 00:24 Condition: STABLE Additional Instructions: Take prescription meds as directed as needed for headache. Follow-up with clinic for further evaluation. Prescriptions: Metoclopramide [Reglan] 10 mg PO Q6 PRN #20 tab PRN Reason: Nausea/Vomiting Naproxen [Naprosyn] 500 mg PO BID #20 tab Instructions: Headache, Adult Forms: [facility] (Bulgarian), [facility] ED School/Work Excuse
--- NOTE | 2017-05-01 00:16 | CT ---
EXAM: CT Head Without Intravenous Contrast CLINICAL HISTORY: 27 years old, female; Pain; Headache TECHNIQUE: Axial computed tomography images of the head/brain without intravenous contrast. All CT scans at this facility use one or more dose reduction techniques, viz.: automated exposure control; ma/kV adjustment per patient size (including targeted exams where dose is matched to indication; i.e. head); or iterative reconstruction technique. Coronal and sagittal reformatted images were created and reviewed. COMPARISON: CT HEAD OR BRAIN W/O CONT 2012-10-23 12:28 FINDINGS: Brain: No intracranial hemorrhage. No mass. No definite edema. Ventricles: No hydrocephalus. Bones/joints: No acute fracture. Soft tissues: Unremarkable. Sinuses: Scattered minimal mucosal thickening. Mastoid air cells: No mastoid effusion. Orbits: Unremarkable as visualized. IMPRESSION: 1. No definite acute intracranial abnormality. 2. Incidental/non-acute findings are described above.
[2017-05-01 00:42] VITALS: BP 149/92; PULSE 76; TEMP 98.2; O2SAT 100
== END 2017-05-01 01:00 | disposition home or self-care (01) ==
LOC: H.ER 21:19
DX: R51 Headache (principal); E03.9 Hypothyroidism, unspecified; F32.9 Major depressive disorder, single episode, unspecified; F41.9 Anxiety disorder, unspecified
CPT/HCPCS: 70450; 81025; 96372; 99284; J1885; J3030

== ENCOUNTER 2017-08-28 15:48 | Emergency (ER) | payer OTHER ==
[2017-08-28 15:48] VITALS: BMI 33.3
[2017-08-28 15:54] VITALS: BP 132/78; PULSE 62; RESP 18; TEMP 97.9; O2SAT 100
--- NOTE | 2017-08-28 16:49 | ED PDOC ---
HPI: General Adult Time Seen by Provider: 08/28/17 16:40 Chief Complaint (Nursing): Anxiety Chief Complaint (Provider): Anxiety History Per: Patient History/Exam Limitations: no limitations Onset/Duration Of Symptoms: Days Current Symptoms Are (Timing): Still Present Additional Complaint(s): Megan Calixto is a 27 year old female, with a past medical history of anxiety and hypothyroidism, who was brought to the emergency department via EMS for evaluation of anxiety associated with difficulty breathing, palpitations and chest tightness onset today. She is currently taking Zoloft for anxiety. Patient states she stopped taking it for 2-3 weeks but started taking it again x2 weeks ago but with no improvement. She is not on controls. She denies any fever, chills, nausea, vomit, diarrhea, abdominal pain or headache. No further medical complaints. PMD: None provided. Past Medical History Reviewed: Historical Data, Nursing Documentation, Vital Signs Vital Signs: Last Vital Signs Temp 97.9 F 08/28/17 15:51 Pulse 62 08/28/17 15:51 Resp 18 08/28/17 15:51 BP 132/78 08/28/17 15:51 Pulse Ox 100 08/28/17 18:43 - Medical History PMH: Anemia, Anxiety, Depression, Hypothyroidism Denies: Chronic Kidney Disease - Surgical History Surgical History: - Family History Family History: States: Unknown Family Hx, Hypertension - Social History Current smoker - smoking cessation education provided: Yes (Heavy smoker >10 cigarettes daily) Alcohol: None Drugs: Denies - Immunization History Hx Tetanus Toxoid Vaccination: No Hx Influenza Vaccination: No Hx Pneumococcal Vaccination: No - Home Medications Home Medications: Ambulatory Orders Medication Instructions Recorded Sertraline HCl [Zoloft] 50 mg PO DAILY 09/25/14 Docusate Sodium [Colace] 100 mg PO BID #30 sgl 09/26/14 Ferrous Sulfate 325 mg PO BID #60 tab 09/26/14 Ferrous Sulfate 325 mg PO BID #20 tablet 05/03/15 Penicillin VK [Penicillin VK Tab] 250 mg PO Q8 #15 tab 08/27/15 Famotidine [Pepcid] 20 mg PO Q12 #20 tab 09/02/15 Erythromycin 0.5% [Ilytocin] 1 inch OS HS #1 tube 12/07/15 Non-Formulary 1 ea OS HS #1 ea 12/07/15 Valacyclovir HCl [Valtrex] 1,000 mg PO TID #21 tablet 12/07/15 predniSONE [Prednisone] 60 mg PO DAILY 10 Days tab 12/07/15 Sertraline [Zoloft] 100 mg PO DAILY #7 tab 03/05/16 Acetaminophen [Pain Reliever] 500 mg PO Q4 #30 tablet 11/17/16 Naproxen [Naprosyn] 500 mg PO BID PRN #15 tablet 12/29/16 Metoclopramide [Reglan] 10 mg PO Q6 PRN #20 tab 05/01/17 Naproxen [Naprosyn] 500 mg PO BID #20 tab 05/01/17 - Allergies Allergies/Adverse Reactions: Allergies Allergy/AdvReac Type Severity Reaction Status Date / Time No Known Allergies Allergy Verified 11/14/16 09:13 Review of Systems ROS Statement: Except As Marked, All Systems Reviewed And Found Negative Constitutional: Negative for: Fever, Chills Cardiovascular: Positive for: Palpitations Respiratory: Positive for: Shortness of Breath Gastrointestinal: Negative for: Nausea, Vomiting, Abdominal Pain, Diarrhea Neurological: Negative for: Headache Psych: Positive for: Anxiety Physical Exam - Reviewed Nursing Documentation Reviewed: Yes Vital Signs Reviewed: Yes - Physical Exam Appears: Positive for: Non-toxic, No Acute Distress Head Exam: Positive for: ATRAUMATIC, NORMOCEPHALIC Skin: Positive for: Normal Color, Warm, Dry Eye Exam: Positive for: Normal appearance, EOMI, PERRL Neck: Positive for: Painless ROM, Supple Cardiovascular/Chest: Positive for: Regular Rate, Rhythm. Negative for: Murmur Respiratory: Positive for: Normal Breath Sounds. Negative for: Respiratory Distress Gastrointestinal/Abdominal: Positive for: Normal Exam, Soft. Negative for: Tenderness, Guarding, Rebound Back: Positive for: Normal Inspection. Negative for: L CVA Tenderness, R CVA Tenderness, Vertebral Tenderness Extremity: Positive for: Normal ROM (upper and lower extremities). Negative for : Pedal Edema, Calf Tenderness, Deformity, Swelling Neurologic/Psych: Positive for: Alert, Oriented. Negative for: Motor/Sensory Deficits - Laboratory Results Result Diagrams: 08/28/17 17:38 08/28/17 17:38 Urine POC: Negative - ECG O2 Sat by Pulse Oximetry: 100 (RA) Pulse Ox Interpretation: Normal - Progress ED Course And Treament: XANAX 0.5 MG X 1 DOSE Medical Decision Making Medical Decision Making: Time: 16:40 Initial Impression: anxiety Initial Plan: --BMP --TSH --Urine --CBC w/ differential --Xanax 0.5 mg PO --Reevaluation 17:20 -EKG: Sinus acrlos at 59 bpm, incomplete RBBB, T-wave lead III. -Incomplete RBBB noted on old EKG done in 12/29/16. Scribe Attestation: Documented by Anders Acuna, acting as a scribe for Benito Carranza PA-C Provider Scribe Attestation: All medical record entries made by the Scribe were at my direction and personally dictated by me. I have reviewed the chart and agree that the record accurately reflects my personal performance of the history, physical exam, medical decision making, and the department course for this patient. I have also personally directed, reviewed, and agree with the discharge instructions and disposition. Disposition - Clinical Impression Clinical Impression: Anxiety - Patient ED Disposition Is Patient to be Admitted: No - Disposition Referrals: [facility] [Outside] Disposition: Routine/Home Disposition Time: 18:40 Condition: IMPROVED Instructions: Anxiety, Adult (DC)
[2017-08-28 17:42] LABS: BASO # 0.1 K/uL (0.0-0.2); BASO % 0.7 % (0.0-2.0); EOS # 0.2 K/uL (0.0-0.7); EOS % 2.5 % (0.0-4.0); HEMOGLOBIN 12.5 g/dL (12.0-16.0); LYMPH % 25.4 % (20.0-40.0); MEAN CORPUSCULAR HEMOGLOBIN 28.1 pg (27.0-31.0); MONO # 0.4 K/uL (0.0-0.8); MONO % 5.7 % (0.0-10.0); NEUT # 5.1 K/uL (1.8-7.0); NEUT % 65.7 % (50.0-75.0); RBC 4.43 Mil/uL (3.80-5.20); RED CELL DISTRIBUTION WIDTH 14.6 % (11.5-14.5); WHITE BLOOD COUNT 7.8 K/uL (4.8-10.8)
[2017-08-28 17:45] LABS: MEAN CELL VOLUME 82.7 fl (81.0-99.0)
[2017-08-28 17:56] LABS: BLOOD UREA NITROGEN 10 mg/dl (7-17); CALCIUM 10.1 mg/dL (8.4-10.2); GFR AFRICAN-AMERICAN > 60; GFR NON-AFRICAN AMERICAN > 60
== END 2017-08-28 19:02 | disposition home or self-care (01) ==
LOC: H.ER 15:48
DX: F41.9 Anxiety disorder, unspecified (principal); E03.9 Hypothyroidism, unspecified; F32.9 Major depressive disorder, single episode, unspecified; F17.210 Nicotine dependence, cigarettes, uncomplicated

== ENCOUNTER 2017-10-16 01:01 | Emergency (ER) | payer OTHER ==
[2017-10-16 01:02] VITALS: BMI 33.3
[2017-10-16 01:16] VITALS: RESP 16; O2SAT 99
--- NOTE | 2017-10-16 02:25 | ED PDOC ---
HPI: Psych/Substance Abuse Time Seen by Provider: 10/16/17 01:30 Chief Complaint (Nursing): Palpitations History Per: Patient Onset/Duration Of Symptoms: Mins Additional Complaint(s): Hx of anxiety presenting with anxiety attack. States she's been taking ABx ( Amox) for a "tooth infection" for 3 days. States that 7 minutes after taking the medication she felt anxious, palpitations. States she's still feeling anxious now but not suicidal or homicidal. No fevers, chills, chest pain. Past Medical History Reviewed: Historical Data, Nursing Documentation, Vital Signs Vital Signs: Last Vital Signs Temp 99.3 F 10/16/17 01:10 Pulse 76 10/16/17 01:10 Resp 16 10/16/17 01:10 BP 136/96 H 10/16/17 01:10 Pulse Ox 99 10/16/17 01:10 - Medical History PMH: Anemia, Anxiety, Depression, Hypothyroidism Denies: Chronic Kidney Disease - Surgical History Surgical History: - Family History Family History: States: Unknown Family Hx, Hypertension - Immunization History Hx Tetanus Toxoid Vaccination: No Hx Influenza Vaccination: No Hx Pneumococcal Vaccination: No - Home Medications Home Medications: Ambulatory Orders Medication Instructions Recorded Sertraline HCl [Zoloft] 50 mg PO DAILY 09/25/14 Docusate Sodium [Colace] 100 mg PO BID #30 sgl 09/26/14 Ferrous Sulfate 325 mg PO BID #60 tab 09/26/14 Ferrous Sulfate 325 mg PO BID #20 tablet 05/03/15 Penicillin VK [Penicillin VK Tab] 250 mg PO Q8 #15 tab 08/27/15 Famotidine [Pepcid] 20 mg PO Q12 #20 tab 09/02/15 Erythromycin 0.5% [Ilytocin] 1 inch OS HS #1 tube 12/07/15 Non-Formulary 1 ea OS HS #1 ea 12/07/15 Valacyclovir HCl [Valtrex] 1,000 mg PO TID #21 tablet 12/07/15 predniSONE [Prednisone] 60 mg PO DAILY 10 Days tab 12/07/15 Sertraline [Zoloft] 100 mg PO DAILY #7 tab 03/05/16 Acetaminophen [Pain Reliever] 500 mg PO Q4 #30 tablet 11/17/16 Naproxen [Naprosyn] 500 mg PO BID PRN #15 tablet 12/29/16 Metoclopramide [Reglan] 10 mg PO Q6 PRN #20 tab 05/01/17 Naproxen [Naprosyn] 500 mg PO BID #20 tab 05/01/17 - Allergies Allergies/Adverse Reactions: Allergies Allergy/AdvReac Type Severity Reaction Status Date / Time No Known Allergies Allergy Verified 11/14/16 09:13 Review of Systems ROS Statement: Except As Marked, All Systems Reviewed And Found Negative Cardiovascular: Positive for: Palpitations Psych: Positive for: Anxiety Physical Exam - Reviewed Nursing Documentation Reviewed: Yes Vital Signs Reviewed: Yes - Physical Exam Appears: Positive for: Well, Non-toxic, No Acute Distress Head Exam: Positive for: ATRAUMATIC, NORMAL INSPECTION, NORMOCEPHALIC Skin: Positive for: Normal Color, Warm, DRY Eye Exam: Positive for: EOMI, Normal appearance, PERRL ENT: Positive for: Normal ENT Inspection, Other (Poor dentition) Neck: Positive for: Normal, Painless ROM Cardiovascular/Chest: Positive for: Regular Rate, Rhythm Respiratory: Positive for: CNT, Normal Breath Sounds Gastrointestinal/Abdominal: Positive for: Normal Exam, Soft Back: Positive for: Normal Inspection Extremity: Positive for: Normal ROM Neurologic/Psych: Positive for: Alert, manager business II-XII, Oriented, Mood/Affect ( Anxious) - ECG O2 Sat by Pulse Oximetry: 99 Medical Decision Making Medical Decision Making: Patient presenting with anxiety attack -Normal vitals, normal EKG -reassured patient, requested benzo -will give xanax and refer to dentistry and psychiatry -patient also asking for referral for PMD -discharged in well appearing condition Disposition - Clinical Impression Clinical Impression: Anxiety - Disposition Referrals: Apollo Kelly MD [Staff Provider] - Leonardo Bursn MD [Staff Provider] - Disposition: Routine/Home Disposition Time: 02:25 Condition: STABLE Instructions: Quitting Smoking for Teens and Young Adults, Anxiety, Adult (DC) Forms: [employer] (Croatian)
[2017-10-16 02:51] VITALS: BP 129/80; PULSE 74; TEMP 98.9
== END 2017-10-16 02:22 | disposition home or self-care (01) ==
LOC: H.ER 01:01
DX: F41.9 Anxiety disorder, unspecified (principal)

== ENCOUNTER 2017-10-26 21:57 | Emergency (ER) | payer OTHER ==
[2017-10-26 21:57] VITALS: BMI 33.3
[2017-10-26 22:03] VITALS: RESP 16; O2SAT 99
--- NOTE | 2017-10-26 22:49 | ED PDOC ---
HPI: Headache Time Seen by Provider: 10/26/17 22:06 Chief Complaint (Nursing): Headache Chief Complaint (Provider): Headache - Left sided x 2 days History Per: Patient History/Exam Limitations: no limitations Onset/Duration Of Symptoms: Days Current Symptoms Are (Timing): Still Present Quality: Dull Preceeding Symptoms: None Associated Symptoms: denies: Photophobia, Blurred Vision, Nausea, Vomiting, Extremity Weakness Additional Complaint(s): 27 yo female with history of left dental abscess presents for evaluation of left sided head pain. Pt states my vein hurts. Pt without fever/chills. Pt state she has been seen by denle[facility] for recurrent left upper dental abscess. Pt states 10/13 she was given amoxicillin but had a bad reaction so she stopped. Pt states she called dentist today and was given Rx for clindamycin. Pt reports continued pain and states after no improvement with motrin she called dentist again and was told to come to ER. No fever/chills. Past Medical History Reviewed: Historical Data, Nursing Documentation, Vital Signs Vital Signs: Last Vital Signs Temp 99.3 F 10/26/17 22:01 Pulse 75 10/26/17 22:01 Resp 16 10/26/17 22:01 BP 145/96 H 10/26/17 22:01 Pulse Ox 99 10/26/17 22:01 - Medical History PMH: Anemia, Anxiety, Depression, Hypothyroidism Denies: Chronic Kidney Disease - Surgical History Surgical History: - Family History Family History: States: Unknown Family Hx, Hypertension - Immunization History Hx Tetanus Toxoid Vaccination: No Hx Influenza Vaccination: No Hx Pneumococcal Vaccination: No - Home Medications Home Medications: Ambulatory Orders Medication Instructions Recorded Sertraline HCl [Zoloft] 50 mg PO DAILY 09/25/14 Docusate Sodium [Colace] 100 mg PO BID #30 sgl 09/26/14 Ferrous Sulfate 325 mg PO BID #60 tab 09/26/14 Ferrous Sulfate 325 mg PO BID #20 tablet 05/03/15 Penicillin VK [Penicillin VK Tab] 250 mg PO Q8 #15 tab 08/27/15 Famotidine [Pepcid] 20 mg PO Q12 #20 tab 09/02/15 Erythromycin 0.5% [Ilytocin] 1 inch OS HS #1 tube 12/07/15 Non-Formulary 1 ea OS HS #1 ea 12/07/15 Valacyclovir HCl [Valtrex] 1,000 mg PO TID #21 tablet 12/07/15 predniSONE [Prednisone] 60 mg PO DAILY 10 Days tab 12/07/15 Sertraline [Zoloft] 100 mg PO DAILY #7 tab 03/05/16 Acetaminophen [Pain Reliever] 500 mg PO Q4 #30 tablet 11/17/16 Naproxen [Naprosyn] 500 mg PO BID PRN #15 tablet 12/29/16 Metoclopramide [Reglan] 10 mg PO Q6 PRN #20 tab 05/01/17 Naproxen [Naprosyn] 500 mg PO BID #20 tab 05/01/17 - Allergies Allergies/Adverse Reactions: Allergies Allergy/AdvReac Type Severity Reaction Status Date / Time No Known Allergies Allergy Verified 11/14/16 09:13 Review of Systems ROS Statement: Except As Marked, All Systems Reviewed And Found Negative Constitutional: Negative for: Fever, Chills Cardiovascular: Negative for: Chest Pain Respiratory: Negative for: Cough, Shortness of Breath Neurological: Positive for: Headache Physical Exam - Reviewed Nursing Documentation Reviewed: Yes Vital Signs Reviewed: Yes - Physical Exam Appears: Positive for: Well, Non-toxic, No Acute Distress Head Exam: Positive for: ATRAUMATIC, NORMAL INSPECTION, NORMOCEPHALIC Skin: Positive for: Normal Color, Warm, DRY Eye Exam: Positive for: EOMI, Normal appearance, PERRL ENT: Positive for: Normal ENT Inspection, Other (Poor dentition, no drainage ) Neck: Positive for: Normal Respiratory: Negative for: Accessory Muscle Use, Respiratory Distress Gastrointestinal/Abdominal: Positive for: Normal Exam, Soft Back: Positive for: Normal Inspection Extremity: Positive for: Normal ROM Neurologic/Psych: Positive for: Alert, Oriented - ECG O2 Sat by Pulse Oximetry: 99 Medical Decision Making Medical Decision Making: Discussed risk/benefit of CT scan. Pt with normal vitals and normal neurological exam. CT is not indicated at this time. Pt has head CT 5 months ago. Pt insisted on CT for evaluation of head pain. Endrosed to PENNIE Raymundo pending head CT. Disposition - Clinical Impression Clinical Impression: Head pain - Patient ED Disposition Is Patient to be Admitted: Transfer of Care - Disposition Disposition: Transfer of Care Disposition Time: 00:00 Condition: STABLE Forms: [employer] ([employer])
--- NOTE | 2017-10-27 00:38 | ED PDOC ---
- ECG O2 Sat by Pulse Oximetry: 99 - Progress ED Course And Treament: Case endorsed to content writer from Kelly CASPER pending CT head Patient educated on findings, discharged with instructions to continue current medications Follow up PMD/dentist this week Return precautions given Disposition - Clinical Impression Clinical Impression: Head pain - POA Present On Arrival: None - Disposition Disposition: Routine/Home Disposition Time: 00:36 Condition: IMPROVED Instructions: Headache, Adult
[2017-10-27 01:54] VITALS: BP 125/76; PULSE 77; TEMP 98.9
--- NOTE | 2017-10-27 09:23 | CT ---
Date of service: 10/26/2017 PROCEDURE: CT HEAD WITHOUT CONTRAST. HISTORY: left sided head pain COMPARISON: 04/30/2017. TECHNIQUE: Axial computed tomography images were obtained through the head/brain without intravenous contrast. Radiation dose: Total exam DLP = 821.55 mGy-cm. This CT exam was performed using one or more of the following dose reduction techniques: Automated exposure control, adjustment of the mA and/or kV according to patient size, and/or use of iterative reconstruction technique. FINDINGS: HEMORRHAGE: No intracranial hemorrhage. BRAIN: Bhatt-white matter differentiation is preserved. There is no mass, mass effect or abnormal extra-axial fluid collection. There is no territorial infarction. The midline sagittal structures are normal. VENTRICLES: The ventricles are normal in size, shape and configuration. CALVARIUM: There is no calvarial fracture or extracranial soft tissue swelling. PARANASAL SINUSES: Predominantly clear. MASTOID AIR CELLS: Predominantly clear. OTHER FINDINGS: None. IMPRESSION: No acute intracranial abnormality. A preliminary report was provided by [employer] [facility].
== END 2017-10-27 00:49 | disposition home or self-care (01) ==
LOC: H.ER 21:57
DX: R51 Headache (principal); Z86.59 Personal history of other mental and behavioral disorders; E03.9 Hypothyroidism, unspecified

== ENCOUNTER 2017-11-12 00:22 | Emergency (ER) | payer OTHER ==
[2017-11-12 00:22] VITALS: BMI 33.3
--- NOTE | 2017-11-12 01:30 | ED PDOC ---
HPI: Chest Pain Time Seen by Provider: 11/12/17 00:29 Chief Complaint (Nursing): Chest Pain Chief Complaint (Provider): chest pain History Per: Patient History/Exam Limitations: no limitations Onset/Duration Of Symptoms: Days (2), Waxing/Waning Current Symptoms Are (Timing): Still Present Exacerbating Factors: Deep Breathing Additional Complaint(s): 27 y/o female brought in by EMS for evaluation of chest pain x 2 days, worse today. Associated shortness of breath. Patient states pain worsened by deep breaths and radiates to upper back. Denies fever, headache, dizziness, nausea/ vomiting, palpitations, leg pain/swelling, recent travel. Patient just quit smoking 2 days ago Past Medical History Reviewed: Historical Data, Nursing Documentation, Vital Signs Vital Signs: Last Vital Signs Temp 99 F 11/12/17 00:23 Pulse 72 11/12/17 00:23 Resp 18 11/12/17 00:23 BP 142/102 H 11/12/17 00:23 Pulse Ox 99 11/12/17 02:46 - Medical History PMH: Anemia, Anxiety, Depression, Hypothyroidism Denies: Chronic Kidney Disease - Surgical History Surgical History: - Family History Family History: States: Unknown Family Hx, Hypertension - Immunization History Hx Tetanus Toxoid Vaccination: No Hx Influenza Vaccination: No Hx Pneumococcal Vaccination: No - Home Medications Home Medications: Ambulatory Orders Medication Instructions Recorded Sertraline HCl [Zoloft] 50 mg PO DAILY 09/25/14 Docusate Sodium [Colace] 100 mg PO BID #30 sgl 09/26/14 Ferrous Sulfate 325 mg PO BID #60 tab 09/26/14 Ferrous Sulfate 325 mg PO BID #20 tablet 05/03/15 Penicillin VK [Penicillin VK Tab] 250 mg PO Q8 #15 tab 08/27/15 Famotidine [Pepcid] 20 mg PO Q12 #20 tab 09/02/15 Erythromycin 0.5% [Ilytocin] 1 inch OS HS #1 tube 12/07/15 Non-Formulary 1 ea OS HS #1 ea 12/07/15 Valacyclovir HCl [Valtrex] 1,000 mg PO TID #21 tablet 12/07/15 predniSONE [Prednisone] 60 mg PO DAILY 10 Days tab 12/07/15 Sertraline [Zoloft] 100 mg PO DAILY #7 tab 03/05/16 Acetaminophen [Pain Reliever] 500 mg PO Q4 #30 tablet 11/17/16 Naproxen [Naprosyn] 500 mg PO BID PRN #15 tablet 12/29/16 Metoclopramide [Reglan] 10 mg PO Q6 PRN #20 tab 05/01/17 Naproxen [Naprosyn] 500 mg PO BID #20 tab 05/01/17 Naproxen [Naprosyn] 500 mg PO Q12 PRN #20 tablet 11/12/17 - Allergies Allergies/Adverse Reactions: Allergies Allergy/AdvReac Type Severity Reaction Status Date / Time No Known Allergies Allergy Verified 11/14/16 09:13 Review of Systems ROS Statement: Except As Marked, All Systems Reviewed And Found Negative Cardiovascular: Positive for: Chest Pain Respiratory: Positive for: Shortness of Breath Physical Exam - Reviewed Nursing Documentation Reviewed: Yes Vital Signs Reviewed: Yes - Physical Exam Appears: Positive for: Well, Non-toxic, No Acute Distress Head Exam: Positive for: ATRAUMATIC, NORMAL INSPECTION, NORMOCEPHALIC Skin: Positive for: Normal Color Eye Exam: Positive for: Normal appearance ENT: Positive for: Normal ENT Inspection Cardiovascular/Chest: Positive for: Regular Rate, Rhythm. Negative for: Chest Non Tender (tender to palpate midsternum; no edema, ecchymosis noted) Respiratory: Positive for: Normal Breath Sounds Gastrointestinal/Abdominal: Positive for: Normal Exam Back: Positive for: Normal Inspection Extremity: Positive for: Normal ROM Neurologic/Psych: Positive for: Alert, Oriented (x3) - Laboratory Results Result Diagrams: 11/12/17 01:45 11/12/17 01:45 - ECG ECG: Positive for: Viewed By Me (reviewed by ED attending) ECG Rhythm: Positive for: Sinus Rhythm O2 Sat by Pulse Oximetry: 99 - Radiology X-Ray: Viewed By Me X-Ray Interpretation: No Acute Disease - Progress ED Course And Treament: labs, ekg, chest xray, IV toradol On re-eval, patient states pain improved Patient educated on findings, discharged with rx Naproxen Advised follow up PMD 2-3 days Return precautions given Disposition - Clinical Impression Clinical Impression: Atypical chest pain - Patient ED Disposition Is Patient to be Admitted: No Counseled Patient/Family Regarding: Studies Performed, Diagnosis, Need For Followup - Disposition Referrals: Leonardo Burns MD [Primary Care Provider] - Disposition: Routine/Home Disposition Time: 02:46 Condition: IMPROVED Prescriptions: Naproxen [Naprosyn] 500 mg PO Q12 PRN #20 tablet PRN Reason: Pain, Moderate (4-7) Instructions: Chest Pain Forms: [employer] (Mongolian)
[2017-11-12 02:03] LABS: BASO # 0.1 K/uL (0.0-0.2); BASO % 1.4 % (0.0-2.0); EOS # 0.2 K/uL (0.0-0.7); EOS % 3.4 % (0.0-4.0); HEMOGLOBIN 11.4 g/dL (12.0-16.0); LYMPH # 2.9 K/uL (1.0-4.3); LYMPH % 42.9 % (20.0-40.0); MEAN CELL VOLUME 80.6 fl (81.0-99.0); MEAN CORPUSCULAR HEMOGLOBIN 27.8 pg (27.0-31.0); MEAN CORPUSCULAR HGB CONC 34.5 g/dL (33.0-37.0); MEAN PLATELET VOLUME 8.9 fl (7.2-11.7); MONO # 0.5 K/uL (0.0-0.8); MONO % 7.7 % (0.0-10.0); NEUT % 44.6 % (50.0-75.0); RBC 4.09 Mil/uL (3.80-5.20); RED CELL DISTRIBUTION WIDTH 15.9 % (11.5-14.5); WHITE BLOOD COUNT 6.8 K/uL (4.8-10.8)
[2017-11-12 02:08] LABS: ALB/GLOB RATIO 1.3 (1.0-2.1); ALBUMIN 4.5 g/dL (3.5-5.0); BLOOD UREA NITROGEN 12 mg/dl (7-17); CALCIUM 9.8 mg/dL (8.4-10.2); GFR NON-AFRICAN AMERICAN > 60
[2017-11-12 02:24] LABS: ALT/SGPT 22 U/L (9-52); AST/SGOT 31 U/L (14-36)
[2017-11-12 03:16] VITALS: BP 132/83; PULSE 70; RESP 17; TEMP 98.1; O2SAT 100
--- NOTE | 2017-11-12 09:04 | RAD ---
HISTORY: COMPARISON: 12/29/2016. TECHNIQUE: Chest PA and lateral FINDINGS: LINES AND TUBES: None. LUNG AND PLEURA: The lungs are well inflated and clear. No pleural effusion or pneumothorax. HEART AND MEDIASTINUM: The heart is not enlarged. The hilar and mediastinal contours are within normal limits. SKELETAL STRUCTURES: The bony structures are within normal limits for the patient's age. VISUALIZED UPPER ABDOMEN: Normal. OTHER FINDINGS: None. IMPRESSION: No active pulmonary disease.
== END 2017-11-12 03:25 | disposition home or self-care (01) ==
LOC: H.ER 00:22
DX: R07.89 Other chest pain (principal); E03.9 Hypothyroidism, unspecified; F32.9 Major depressive disorder, single episode, unspecified; F41.9 Anxiety disorder, unspecified; Z87.891 Personal history of nicotine dependence
CPT/HCPCS: 71046; 80053; 81025; 84484; 85025; 85378; 96374; 99285; J1885

== ENCOUNTER 2018-01-29 21:14 | Emergency (ER) | payer OTHER ==
[2018-01-29 21:14] VITALS: BMI 33.3
[2018-01-29 21:26] VITALS: PULSE 74; TEMP 98; O2SAT 98
[2018-01-29 22:07] VITALS: RESP 16
[2018-01-29] MEDS ORDERED: Sodium Chloride 0.9% 1,000 ML IV STA (22:11)
[2018-01-29] MEDS ORDERED: Albuterol-Ipratrop 3 mg / 0.5 (3 ml) UD INH STA (22:11)
[2018-01-29] MEDS ORDERED: Albuterol-Ipratrop 3 mg / 0.5 (3 ml) UD ONE (22:26)
[2018-01-29 22:29] LABS: BASO % 0.7 % (0.0-2.0); EOS # 0.1 K/uL (0.0-0.7); EOS % 1.5 % (0.0-4.0); HEMOGLOBIN 11.1 g/dL (12.0-16.0); LYMPH # 1.9 K/uL (1.0-4.3); LYMPH % 26.9 % (20.0-40.0); MEAN CELL VOLUME 80.1 fl (81.0-99.0); MEAN CORPUSCULAR HEMOGLOBIN 26.6 pg (27.0-31.0); MEAN CORPUSCULAR HGB CONC 33.2 g/dL (33.0-37.0); MEAN PLATELET VOLUME 8.7 fl (7.2-11.7); MONO # 0.5 K/uL (0.0-0.8); MONO % 6.6 % (0.0-10.0); NEUT # 4.6 K/uL (1.8-7.0); NEUT % 64.3 % (50.0-75.0); NRBC % 0.1 % (0.0-0.0); RBC 4.16 Mil/uL (3.80-5.20); RED CELL DISTRIBUTION WIDTH 16.2 % (11.5-14.5); WHITE BLOOD COUNT 7.2 K/uL (4.8-10.8)
--- NOTE | 2018-01-29 22:36 | ED PDOC ---
Arrival/HPI - General Chief Complaint: Shortness Of Breath Time Seen by Provider: 01/29/18 22:20 Historian: Patient - History of Present Illness Narrative History of Present Illness (Text): 01/29/18 23:03 27 y/o tobacco-smoking female with PMH of asthma, hypothyroidism, anemia, and anxiety presents to the ED c/o SOB x 1 week. Associated mild dry cough. Episodes of SOB occur intermittently throughout the day unprovoked, described as difficulty taking deep breaths and are associated with lightheadedess and increased anxiety. Using ventolin without relief. States her typical panic attacks don't feel this way. Pt follows with Dr. Greco, psychiatry, and takes Zoloft daily, with Xanax as needed for her anxiety. When she takes her Xanax, it relieves her SOB. States she ran out of her Xanax earlier this week. Pt also started smoking tobacco again this week after quitting for a month. LMP 01/22/18. Denies substance use, SI/HI, hallucinations, fevers, chills, chest pain, palpitations, diaphoresis, N/V, abdominal pain, urinary symptoms, back pain, hemoptysis, calf pain, calf swelling, or any other associated symptoms. Past Medical History - Provider Review Nursing Documentation Reviewed: Yes - Infectious Disease Hx of Infectious Diseases: None - Cardiac Hx Cardiac Disorders: No - Pulmonary Hx Respiratory Disorders: No - Neurological Hx Neurological Disorder: No - HEENT Hx HEENT Disorder: No - Renal Hx Renal Disorder: No - Endocrine/Metabolic Hx Hypothyroidism: Yes - Hematological/Oncological Hx Anemia: Yes - Integumentary Hx Dermatological Disorder: No - Musculoskeletal/Rheumatological Hx Musculoskeletal Disorders: No - Gastrointestinal Hx Gastrointestinal Disorders: No - Genitourinary/Gynecological Hx Genitourinary Disorders: No Other/Comment: Abortions x 2 - Psychiatric Hx Anxiety: Yes Hx Depression: Yes Hx Substance Use: No - Surgical History Hx Section: Yes Other/Comment: [facility] - 12/05/2015 - Anesthesia Hx Anesthesia: Yes Hx Anesthesia Reactions: No - Suicidal Assessment Feels Threatened In Home Enviroment: No Family/Social History - Physician Review Nursing Documentation Reviewed: Yes Family/Social History: No Known Family HX Smoking Status: Heavy Smoker > 10 Cigarettes Daily Hx Alcohol Use: No Hx Substance Use: No Allergies/Home Meds Allergies/Adverse Reactions: Allergies No Known Allergies Allergy (Verified 01/29/18 21:23) Home Medications: Home Meds Medication Instructions Recorded Confirmed Sertraline HCl [Zoloft] 50 mg PO DAILY 09/25/14 11/26/15 Review of Systems - Physician Review All systems were reviewed & negative as marked: Yes - Review of Systems Constitutional: Normal. absent: Fevers Eyes: Normal. absent: Vision Changes ENT: Normal. absent: Hearing Changes Respiratory: SOB, Cough. absent: Sputum, Wheezing Cardiovascular: Normal. absent: Chest Pain, Palpitations, Calf Pain, Syncope Gastrointestinal: Normal. absent: Abdominal Pain, Nausea, Vomiting Genitourinary Female: Normal. absent: Dysuria, Frequency Musculoskeletal: Normal. absent: Back Pain, Neck Pain Skin: Normal. absent: Rash Neurological: Normal. absent: Headache, Dizziness Endocrine: Normal Hemo/Lymphatic: Normal Psychiatric: Anxiety. absent: Depression, Suicidal Ideation Physical Exam Vital Signs Reviewed: Yes Vital Signs Temp Pulse Resp BP Pulse Ox 01/29/18 22:04 16 01/29/18 21:23 98.0 F 74 20 141/100 H 98 Temperature: Afebrile Blood Pressure: Hypertensive Pulse: Regular Respiratory Rate: Normal Appearance: Positive for: Well-Appearing, Non-Toxic, Comfortable Pain Distress: None Mental Status: Positive for: Alert and Oriented X 3 - Systems Exam Head: Present: Atraumatic, Normocephalic Pupils: Present: PERRL Extroacular Muscles: Present: EOMI Conjunctiva: Present: Normal Ears: Present: Normal, NORMAL TM, Normal Canal. No: Erythema, TM Bulging Mouth: Present: Moist Mucous Membranes Pharnyx: Present: Normal. No: ERYTHEMA, EXUDATE, TONSILS ENLARGED Nose (External): Present: Atraumatic Nose (Internal): Present: Normal Inspection Neck: Present: Normal Range of Motion. No: Meningeal Signs, MIDLINE TENDERNESS, Paraspinal Tenderness Respiratory/Chest: Present: Good Air Exchange, Wheezes (very mild, intermittent expiratory bilaterally). No: Respiratory Distress, Accessory Muscle Use, Rales, Retracting, Rhonchi Cardiovascular: Present: Regular Rate and Rhythm, Normal S1, S2. No: Murmurs Abdomen: Present: Normal Bowel Sounds. No: Tenderness, Distention, Peritoneal Signs Back: Present: Normal Inspection. No: CVA Tenderness, Midline Tenderness, Paraspinal Tenderness Upper Extremity: Present: Normal Inspection, Normal ROM, NORMAL PULSES, Neurovascularly Intact, Capillary Refill < 2s. No: Cyanosis, Edema Lower Extremity: Present: Normal Inspection, NORMAL PULSES, Normal ROM, Neurovascularly Intact, Capillary Refill < 2 s. No: Edema Neurological: Present: GCS=15, CN II-XII Intact, Speech Normal, Motor Func Grossly Intact, Normal Sensory Function, Gait Normal, Memory Normal Skin: Present: Warm, Dry, Normal Color. No: Rashes Psychiatric: Present: Alert, Oriented x 3, Normal Insight, Normal Concentration, Anxious. No: Suicidal Ideation, Homicidal Ideation, Delusional, Hallucinations Medical Decision Making ED Course and Treatment: Initial Plan: * CBC, CMP, D-Dimer, TSH * UA, POC preg * EKG * CXR * Duoneb * IVF * Crisis Evaluation On initial evaluation, patient is anxious, asking lots of questions. Requesting Xanax. Not visibly short of breath, speaking in full sentences without retractions, no respiratory distress. POC preg negative UA - unremarkable CBC - Hgb 11.1, otherwise unremarkable. History of anemia. CMP - unremarkable D-Dimer - negative TSH - pending EKG - rate 72, NSR, normal intervals, no STEMI or other signs of ischemia Patient refusing CXR at this time, states she had one last time she was here and does not want the radiation. Explained to patient the benefit of having a CXR, including to rule out pneumonia or other pulmonary or cardiac disease. Patient continues to refuse. Patient requesting to be tested for HIV during her visit. Offered further STI testing, patient refusing, only wants rapid HIV. Patient is asymptomatic. Patient care endorsed to SERVANDO Garcia. Pt A&Ox3, ambulating with steady gait, stable vital signs at this time. Pending TSH, Crisis Eval. - Lab Interpretations Lab Results: 01/29/18 01/29/18 01/29/18 22:30 22:30 22:20 WBC RBC Hgb Hct MCV MCH MCHC RDW Plt Count MPV Neut % (Auto) Lymph % (Auto) [place] % (Auto) Eos % (Auto) Baso % (Auto) Neut # (Auto) Lymph # (Auto) [place] # (Auto) Eos # (Auto) Baso # (Auto) D-Dimer, Quantitative < 200 Sodium Potassium Chloride Carbon Dioxide Anion Gap BUN Creatinine Est GFR ( Amer) Est GFR (Non-Af Amer) Random Glucose Calcium Total Bilirubin AST ALT Alkaline Phosphatase Total Protein Albumin Globulin Albumin/Globulin Ratio TSH 3rd Generation Urine Color Colorless Urine Clarity Clear Urine pH 6.0 Ur Specific [place] < 1.005 Urine Protein Negative Urine Glucose (UA) Neg Urine Ketones Negative Urine Blood Negative Urine Nitrate Negative Urine Bilirubin Negative Urine Urobilinogen 0.2-1.0 Ur Leukocyte Esterase Neg Urine RBC (Auto) 1 Urine Microscopic WBC < 1 Ur Squamous Epith Cells < 1 Urine Bacteria Rare HIV-1 Ab Rapid Screen Non reactive 01/29/18 01/29/18 22:20 22:20 WBC 7.2 RBC 4.16 Hgb 11.1 L Hct 33.3 L MCV 80.1 L MCH 26.6 L MCHC 33.2 RDW 16.2 H Plt Count 264 MPV 8.7 Neut % (Auto) 64.3 Lymph % (Auto) 26.9 [place] % (Auto) 6.6 Eos % (Auto) 1.5 Baso % (Auto) 0.7 Neut # (Auto) 4.6 Lymph # (Auto) 1.9 [place] # (Auto) 0.5 Eos # (Auto) 0.1 Baso # (Auto) 0.0 D-Dimer, Quantitative Sodium 140 Potassium 3.6 Chloride 103 Carbon Dioxide 26 Anion Gap 15 BUN 10 Creatinine 0.6 L Est GFR ( Amer) > 60 Est GFR (Non-Af Amer) > 60 Random Glucose 108 H Calcium 9.4 Total Bilirubin 0.8 AST 21 ALT 19 Alkaline Phosphatase 69 Total Protein 8.7 H Albumin 4.6 Globulin 4.0 H Albumin/Globulin Ratio 1.2 TSH 3rd Generation 25.00 H Urine Color Urine Clarity Urine pH Ur Specific [place] Urine Protein Urine Glucose (UA) Urine Ketones Urine Blood Urine Nitrate Urine Bilirubin Urine Urobilinogen Ur Leukocyte Esterase Urine RBC (Auto) Urine Microscopic WBC Ur Squamous Epith Cells Urine Bacteria HIV-1 Ab Rapid Screen I have reviewed the lab results: Yes - RAD Interpretation Radiology Orders: 01/29/18 22:11 CHEST TWO VIEWS (PA/LAT) [RAD] Stat - EKG Interpretation EKG Interpretation (Text): 01/29/18 23:43 rate 72; nsr; normal intervals; no signs of ischemia Interpreted by ED Physician: Yes Type: 12 lead EKG - Medication Orders Current Medication Orders: Sodium Chloride (Sodium Chloride 0.9%) 1,000 mls @ 1,000 mls/hr IV .Q1H STA Stop: 01/29/18 23:10 Last Admin: 01/29/18 22:27 Dose: 1,000 mls/hr eMAR Start Stop Document 01/29/18 22:27 ADI (Rec: 01/29/18 22:27 ADI [id number]) Intravenous Solution Start Date 01/29/18 Start Time 22:27 End Date 01/29/18 End time 23:27 Total Infusion Time 60 Discontinued Medications Albuterol/Ipratropium (Duoneb 3 Mg/0.5 Mg (3 Ml) Ud) 3 ml INH STAT STA Stop: 01/29/18 22:12 Last Admin: 01/29/18 22:26 Dose: 3 ml - Transfer of Care Patient signed out to Dr:: SERVANDO Garcia Pending Labs:: TSH, T3, T4 Pending Radiology Studies:: CXR if patient changes her mind about refusal Other: Crisis Evaluation Disposition/Present on Arrival - Present on Arrival Any Indicators Present on Arrival: No History of DVT/PE: No History of Uncontrolled Diabetes: No Urinary Catheter: No History of Decub. Ulcer: No - Disposition Have Diagnosis and Disposition been Completed?: No Diagnosis: Shortness of breath, Anxiety Disposition Time: 23:00 Condition: STABLE Forms: [employer] (Italian)
[2018-01-29 22:38] VITALS: BP 140/90
[2018-01-29 22:49] LABS: ALB/GLOB RATIO 1.2 (1.0-2.1); ALBUMIN 4.6 g/dL (3.5-5.0); ALT/SGPT 19 U/L (9-52); AST/SGOT 21 U/L (14-36); BLOOD UREA NITROGEN 10 mg/dl (7-17); CALCIUM 9.4 mg/dL (8.4-10.2); GFR NON-AFRICAN AMERICAN > 60
[2018-01-29 22:50] LABS: SQUAMOUS EPITHIAL < 1 /hpf (0-5); URINE BACTERIA RARE (<OCC); URINE BILIRUBIN NEGATIVE (NEGATIVE); URINE BLOOD NEGATIVE (NEGATIVE); URINE CLARITY CLEAR (Clear); URINE COLOR COLORLESS (YELLOW); URINE GLUCOSE (UA) NEG (Normal); URINE LEUKOCYTE ESTERASE NEG Leu/uL (Negative); URINE PROTEIN NEGATIVE (NEGATIVE); URINE UROBILINOGEN 0.2-1.0 mg/dL (0.2-1.0)
--- NOTE | 2018-01-30 | ED PDOC ---
- Laboratory Results Result Diagrams: 01/29/18 22:20 01/29/18 22:20 - ECG O2 Sat by Pulse Oximetry: 98 - Progress ED Course And Treament: 2300 Signed out to me pending crisis evaluation 2344 On my initial evaluation, pt. appears anxious. 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 Denies SI/HI, hallucinations. Xanax 0.5mg PO ordered. 0110 Pt. is calm, cooperative. Reports feeling much better. SOB has resolved. Currently asymptomatic. Pt. no longer wants to wait for crisis. Denies SI/HI, hallucinations. Pt. will sign AMA. Advised to f/u with PMD for further evaluation of thyroid but is to return to ED immediately for any concerns or questions. Disposition - Clinical Impression Clinical Impression: Shortness of breath, Left against medical advice - POA Present On Arrival: None - Disposition Referrals: [facility] [Outside] Disposition: AGAINST MEDICAL ADVICE Disposition Time: 01:14 Condition: FAIR Additional Instructions: HALLE WILSON, thank you for letting us take care of you today. Your provider was Kaley Goddard MD and you were treated for ANXIETY. The emergency medical care you received today was directed at your acute symptoms. If you were prescribed any medication, please fill it and take as directed. It may take several days for your symptoms to resolve. Return to the Emergency Department if your symptoms worsen, do not improve, or if you have any other problems. Please contact your doctor or call one of the physicians/clinics you have been referred to that are listed on the Patient Visit Information form that is included in your discharge packet. Bring any paperwork you were given at discharge with you along with any medications you are taking to your follow up visit. Our treatment cannot replace ongoing medical care by a primary care provider outside of the emergency department. Thank you for allowing the [facility] team to be part of your care today. If you had an X-Ray or CT scan: A Radiologist will review the ED reading if any change in treatment is needed we will contact you. If you had a blood, urine, or wound culture: It will take several days for the results, if any change in treatment is needed we will contact you. If you had an STI test: It will take 48 hours for the results. Please call after 1 week if you have not heard back. Instructions: Leaving Against Medical Advice Print Language: FAROESE Against Medical Advice - AMA Patient Left Against Medical Advice: The patient declines admission to the hospital and wishes to leave the Emergency Department. This action is against my medical advice. This decision was made with informed refusal. The patient was told that admission to the hospital is necessary. Explanation of the reasons why were discussed. The risks of leaving were explained to the patient and include, but are not limited to, worsening of known or currently unknown conditions, permanent disability and from undiagnosed or untreated conditions. The patient has the capacity to make this informed decision and understands my explanation of the current medical problem and risks of leaving. The patient voluntarily accepts these risks and signed an AMA form documenting our conversation. The patient was given the opportunity to ask questions and reconsider. The patient was encouraged to return to the Emergency Department at any time for further care.
[2018-01-30 00:29] LABS: T4 5.28 ug/dl (5.5-11.0)
[2018-01-30 00:43] LABS: T3 0.99 nmol/L (1.49-2.60)
== END 2018-01-30 01:42 | disposition left against medical advice (07) ==
LOC: H.ER 21:14
DX: R06.02 Shortness of breath (principal); D64.9 Anemia, unspecified; E03.9 Hypothyroidism, unspecified; F32.9 Major depressive disorder, single episode, unspecified; F41.9 Anxiety disorder, unspecified
CPT/HCPCS: 80053; 81003; 81025; 84436; 84443; 84480; 85025; 85378; 87390; 96360; 99285; J7030

== ENCOUNTER 2018-02-16 10:51 | Emergency (ER) | payer OTHER ==
[2018-02-16 10:51] VITALS: BMI 33.3
[2018-02-16 11:10] VITALS: RESP 20; O2SAT 98
--- NOTE | 2018-02-16 12:20 | ED PDOC ---
HPI: Influenza Time Seen by Provider: 02/16/18 11:28 Chief Complaint: Cough, Cold, Congestion Additional complaint(s):: CC: cough and fever HPI: 27 year old female with PMHx asthma presents with complaints of subjective fever, chills, bodyaches and some productive cough x 4 days. Patient came in with two of her children who have similar symptoms. Patient reports pleuric chest pain with deep breathing x 2 days. Denies any dyspnea, wheezing, nausea,vomiting or abdominal pain. Patient did not have influenza vaccine. Patient tried theraflu and tea w/ minimal relief. Last use of inhaler yesterday. No other complaints. PMD: Dr. Burns Past Medical History Vital Signs: Last Vital Signs Temp 98.9 F 02/16/18 11:07 Pulse 88 02/16/18 11:07 Resp 20 02/16/18 11:07 BP 129/82 02/16/18 11:07 Pulse Ox 98 02/16/18 11:07 - Medical History PMH: Anemia, Anxiety, Depression, Hypothyroidism Denies: Chronic Kidney Disease - Surgical History Surgical History: - Family History Family History: States: Unknown Family Hx, Hypertension - Immunization History Hx Tetanus Toxoid Vaccination: No Hx Influenza Vaccination: No Hx Pneumococcal Vaccination: No - Home Medications Home Medications: Ambulatory Orders Medication Instructions Recorded Sertraline HCl [Zoloft] 50 mg PO DAILY 09/25/14 Docusate Sodium [Colace] 100 mg PO BID #30 sgl 09/26/14 Ferrous Sulfate 325 mg PO BID #60 tab 09/26/14 Ferrous Sulfate 325 mg PO BID #20 tablet 05/03/15 Penicillin VK [Penicillin VK Tab] 250 mg PO Q8 #15 tab 08/27/15 Famotidine [Pepcid] 20 mg PO Q12 #20 tab 09/02/15 Erythromycin 0.5% [Ilytocin] 1 inch OS HS #1 tube 12/07/15 Non-Formulary 1 ea OS HS #1 ea 12/07/15 Valacyclovir HCl [Valtrex] 1,000 mg PO TID #21 tablet 12/07/15 predniSONE [Prednisone] 60 mg PO DAILY 10 Days tab 12/07/15 Sertraline [Zoloft] 100 mg PO DAILY #7 tab 03/05/16 Acetaminophen [Pain Reliever] 500 mg PO Q4 #30 tablet 11/17/16 Naproxen [Naprosyn] 500 mg PO BID PRN #15 tablet 12/29/16 Metoclopramide [Reglan] 10 mg PO Q6 PRN #20 tab 05/01/17 Naproxen [Naprosyn] 500 mg PO BID #20 tab 05/01/17 Naproxen [Naprosyn] 500 mg PO Q12 PRN #20 tablet 11/12/17 Albuterol 0.083% [Albuterol 0.083% 3 ml IH Q6H PRN #30 neb 02/16/18 Inhal Marta (2.5 mg/3 ml) UD] - Allergies Allergies/Adverse Reactions: Allergies Allergy/AdvReac Type Severity Reaction Status Date / Time No Known Allergies Allergy Verified 01/29/18 21:23 Review of Systems ROS Statement: Except As Marked, All Systems Reviewed And Found Negative Physical Exam - Physical Exam Appears: Positive for: Well, Non-toxic, No Acute Distress Head Exam: Positive for: ATRAUMATIC, NORMOCEPHALIC Skin: Positive for: Normal Color Eye Exam: Positive for: Normal appearance, EOMI, PERRL ENT: Positive for: Normal ENT Inspection, Pharynx Is (pink. No tonsillar erythema or swelling.), TM Is/Are (normal. No TM erythema or effusion see.), Nasal Congestion. Negative for: Pharyngeal Erythema, Tonsillar Exudate, Tonsillar Swelling Neck: Positive for: Normal, Supple Cardiovascular/Chest: Positive for: Regular Rate, Rhythm Respiratory: Positive for: Normal Breath Sounds. Negative for: Accessory Muscle Use, Crackles, Rales, Rhonchi, Wheezing, Respiratory Distress Gastrointestinal/Abdominal: Positive for: Bowel Sounds, Soft. Negative for: Tenderness Extremity: Positive for: Normal ROM Neurologic/Psych: Positive for: Alert, Oriented - ECG O2 Sat by Pulse Oximetry: 98 - Radiology X-Ray: Read By Radiologist X-Ray Interpretation: Other (IMPRESSION: Findings may represent reactive small airway disease. No lobar pneumonia.) - Progress ED Course And Treament: 27 year old female with cough, subjective fever and chest discomfort with deep breathing. DDX URI, Influenza, PNA Plan: CXR Naproxen 500 mg po Famotidine 20 mg po CXR: impression: Findings may represent reactive small airway disease. No lobar pneumonia. Patient reports her pluritic pain is better after taking naproxen. Patient is advised to take ibuprofen 600 mg po q8 hrs with food for pain and albuterol prn. Patient is medically stable to discharge home. Advised to f/u with PMD in 2-3 days if cough persists or symptoms worsens. Plan d/w Dr. Dimas Disposition - Clinical Impression Clinical Impression: URI (upper respiratory infection) - Disposition Referrals: Leonardo Burns MD [Family Provider] - Disposition Time: 13:43 Condition: STABLE Prescriptions: Albuterol 0.083% [Albuterol 0.083% Inhal Marta (2.5 mg/3 ml) UD] 3 ml IH Q6H PRN #30 neb PRN Reason: Shortness Of Breath Instructions: Viral Upper Respiratory Infection, Adult (DC) Forms: [employer] ([employer])
--- NOTE | 2018-02-16 12:40 | RAD ---
Date of service: 02/16/2018 HISTORY: Fever and cough COMPARISON: 11/12/2017 TECHNIQUE: Chest PA and lateral FINDINGS: LINES AND TUBES: None. LUNG AND PLEURA: There is mild pulmonary hyperinflation and peribronchial cuffing with streaky opacities in the lungs. No pleural effusion or pneumothorax. HEART AND MEDIASTINUM: The heart is not enlarged. No aortic atherosclerotic calcification present. The hilar and mediastinal contours are within normal limits. SKELETAL STRUCTURES: The bony structures are within normal limits for the patient's age. VISUALIZED UPPER ABDOMEN: Normal. OTHER FINDINGS: None. IMPRESSION: Findings may represent reactive small airway disease. No lobar pneumonia.
[2018-02-16] MEDS ORDERED: Naproxen 500 MG TAB PO STA (12:41)
[2018-02-16] MEDS ORDERED: Naproxen 500 MG TAB PO ONE (13:07)
[2018-02-16 13:41] VITALS: BP 110/70; PULSE 74; TEMP 98
== END 2018-02-16 13:40 | disposition home or self-care (01) ==
LOC: H.ER 10:51
DX: J06.9 Acute upper respiratory infection, unspecified (principal)

== ENCOUNTER 2018-03-22 17:00 | Emergency (ER) | payer OTHER ==
[2018-03-22 17:00] VITALS: BMI 33.3
[2018-03-22 17:03] VITALS: TEMP 98.2
--- NOTE | 2018-03-22 18:08 | ED PDOC ---
HPI: Psych/Substance Abuse Time Seen by Provider: 03/22/18 17:10 Chief Complaint (Nursing): Anxiety Chief Complaint (Provider): anxiety History/Exam Limitations: no limitations Modifying Factor(s): None Associated Symptoms: Anxiety. denies: Anger, Suicidal Thoughts, Suicidal Plan Additional Complaint(s): 28 y/o F with hx of anxiety and depression who was BIBA to ED with increased anxiety after attempting to wean herself off of Xanax. Pt states that she has been taking Xanax for several months and wanted to wean herself off of it since she knows that it can be addictive. She has been slowly tapering the medication, the last dose was half a tablet of 0.25mg taken yesterday. This morning, she woke up and began feeling jittery, nauseous, shaking and feeling unwell. She had one bout of diarrhea today but patient is unsure of whether it was watery or loose. Patient denies contacting her psychiatrist, Dr. Greco, to inform him of the fact that she was tapering her medications. She has not seen him for the past 2 months or so. Denies vomiting, fever, chills, night sweats, HI/SI, auditory or visual hallucinations. Further denies C/P, SOB or palpitations. Past Medical History Reviewed: Historical Data, Nursing Documentation, Vital Signs Vital Signs: Last Vital Signs Temp 98.2 F 03/22/18 17:02 Pulse 72 03/22/18 17:31 Resp 16 03/22/18 17:31 BP 116/65 03/22/18 17:31 Pulse Ox 100 03/22/18 17:31 - Medical History PMH: Anemia, Anxiety, Depression, Hypothyroidism Denies: Chronic Kidney Disease - Surgical History Surgical History: - Family History Family History: States: Unknown Family Hx, Hypertension - Immunization History Hx Tetanus Toxoid Vaccination: No Hx Influenza Vaccination: No Hx Pneumococcal Vaccination: No - Home Medications Home Medications: Ambulatory Orders Medication Instructions Recorded Sertraline HCl [Zoloft] 50 mg PO DAILY 09/25/14 Docusate Sodium [Colace] 100 mg PO BID #30 sgl 09/26/14 Ferrous Sulfate 325 mg PO BID #60 tab 09/26/14 Ferrous Sulfate 325 mg PO BID #20 tablet 05/03/15 Penicillin VK [Penicillin VK Tab] 250 mg PO Q8 #15 tab 08/27/15 Famotidine [Pepcid] 20 mg PO Q12 #20 tab 09/02/15 Erythromycin 0.5% [Ilytocin] 1 inch OS HS #1 tube 12/07/15 Non-Formulary 1 ea OS HS #1 ea 12/07/15 Valacyclovir HCl [Valtrex] 1,000 mg PO TID #21 tablet 12/07/15 predniSONE [Prednisone] 60 mg PO DAILY 10 Days tab 12/07/15 Sertraline [Zoloft] 100 mg PO DAILY #7 tab 03/05/16 Acetaminophen [Pain Reliever] 500 mg PO Q4 #30 tablet 11/17/16 Naproxen [Naprosyn] 500 mg PO BID PRN #15 tablet 12/29/16 Metoclopramide [Reglan] 10 mg PO Q6 PRN #20 tab 05/01/17 Naproxen [Naprosyn] 500 mg PO BID #20 tab 05/01/17 Naproxen [Naprosyn] 500 mg PO Q12 PRN #20 tablet 11/12/17 Albuterol 0.083% [Albuterol 0.083% 3 ml IH Q6H PRN #30 neb 02/16/18 Inhal Marta (2.5 mg/3 ml) UD] - Allergies Allergies/Adverse Reactions: Allergies Allergy/AdvReac Type Severity Reaction Status Date / Time No Known Allergies Allergy Verified 01/29/18 21:23 Review of Systems Constitutional: Negative for: Fever, Chills Cardiovascular: Negative for: Chest Pain Respiratory: Negative for: Shortness of Breath Gastrointestinal: Negative for: Nausea, Vomiting - ECG O2 Sat by Pulse Oximetry: 100 Medical Decision Making Medical Decision Making: Crisis evaluation [facility] aware website accessed and patient prescriptions queried in all available states. Pt last filled Alprazolam on 02/08/[address] Anuel Greco. 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 Continues to deny any symptoms of C/P, palpitations, SOB or N/V. Patient encouraged to call Dr. Greco tomorrow to discuss medication regimen/tapering and for f/u appointment. Pt admits that she missed an appointment with Dr. Greco on 03/11/18 as she forgot but that she will give him a call. 20:10: pt states that she now wants to wait for sewage disposal worker to evaluate her. Patient endorsed to [facility] Sanchez pending crisis evaluation. Disposition - Clinical Impression Clinical Impression: Anxiety disorder - Patient ED Disposition Is Patient to be Admitted: Transfer of Care - Disposition Referrals: Anuel Gaines MD [Medical Doctor] - Disposition: Transfer of Care ([facility]) Disposition Time: 20:10 Condition: STABLE Additional Instructions: F/u with Dr. Greco within the next few days to discuss proper medication regimen for your anxiety and panic attacks. Return to ER if your symptoms worsen. Instructions: Anxiety, Adult (DC) Forms: [employer] (Icelandic) Print Language: MONEGASQUE
[2018-03-22 20:01] VITALS: BP 130/91; PULSE 88; RESP 18
[2018-03-22 20:14] VITALS: O2SAT 100
--- NOTE | 2018-03-22 20:49 | ED PDOC ---
- ECG O2 Sat by Pulse Oximetry: 100 Medical Decision Making Medical Decision Making: Case received from previous provider Crisis intervention occured with Dr De La Cruz involvement Discharge with an appointment at the clinic with Jono who requested two days of anti-axiolitic be prescribed to the patient as well as one tablet at discharge. Will discharge with 1mg xanax TID #6 The results and limitations of this evaluation including the need for possible further care, treatment, and testing were discussed. Follow-up with the clinic as arranged WITHOUT FAIL, or if unable to do so return to the emergency department. These instructions were given to the patient who was given the opportunity to ask questions and verbalized understanding. Disposition Discussed With DrKvng: Neeraj Busch Counseled Patient/Family Regarding: Studies Performed, Diagnosis, Need For Followup, Rx Given - Clinical Impression Clinical Impression: Anxiety disorder, Anxiety - POA Present On Arrival: None - Disposition Referrals: Anuel Gaines MD [Medical Doctor] - Disposition: Routine/Home Disposition Time: 20:50 Condition: STABLE Additional Instructions: F/u with Dr. Greco within the next few days to discuss proper medication regimen for your anxiety and panic attacks. Return to ER if your symptoms worsen. Prescriptions: ALPRAZolam [Xanax] 1 tab PO TID #6 tab Instructions: Anxiety, Adult (DC) Forms: [employer] (Omani) Print Language: UKRAINIAN
== END 2018-03-22 21:32 | disposition home or self-care (01) ==
LOC: H.ER 17:00
DX: F41.9 Anxiety disorder, unspecified (principal); E03.9 Hypothyroidism, unspecified; F32.9 Major depressive disorder, single episode, unspecified

== ENCOUNTER 2018-05-14 18:16 | Emergency (ER) | payer OTHER ==
[2018-05-14 18:16] VITALS: BMI 33.3
[2018-05-14 18:18] VITALS: RESP 16; TEMP 98.6; O2SAT 99
--- NOTE | 2018-05-14 20:23 | ED PDOC ---
HPI: Psych/Substance Abuse Time Seen by Provider: 05/14/18 19:15 Chief Complaint (Nursing): Anxiety History Per: Patient History/Exam Limitations: no limitations Onset/Duration Of Symptoms: Days Current Symptoms Are (Timing): Still Present Additional Complaint(s): 28 y/o female with a PMHx of HTN, hypothyroidism and Anxiety presents to the ED for evaluation of anxiety. Patient reports of being acutely short of breath. Patient reports of taking a Xanax and Albuterol just one hour prior to arrival. Patient notes of taking 1 mg BID Xanax and Zoloft 100 mg daily for Anxiety. Patient states her therapist recommended her to increase her dosage of Zoloft from 100 mg to 200 mg daily. 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 Patient is calm on arrival to the ED. Denies suicidal ideation and homicidal ideation. PMD: Leonardo Burns I Past Medical History Reviewed: Historical Data, Nursing Documentation, Vital Signs Vital Signs: Last Vital Signs Temp 98.6 F 05/14/18 18:17 Pulse 66 05/14/18 18:17 Resp 16 05/14/18 18:17 BP 140/89 05/14/18 18:17 Pulse Ox 99 05/14/18 18:17 - Medical History PMH: Anemia, Anxiety, Depression, Hypothyroidism Denies: Diabetes, Hepatitis, HIV, HTN, Chronic Kidney Disease, Seizures, Sexually Transmitted Disease - Surgical History Surgical History: - Family History Family History: States: Unknown Family Hx, Hypertension - Immunization History Hx Tetanus Toxoid Vaccination: No Hx Influenza Vaccination: No Hx Pneumococcal Vaccination: No - Home Medications Home Medications: Ambulatory Orders Medication Instructions Recorded Sertraline HCl [Zoloft] 50 mg PO DAILY 09/25/14 Docusate Sodium [Colace] 100 mg PO BID #30 sgl 09/26/14 Ferrous Sulfate 325 mg PO BID #60 tab 09/26/14 Ferrous Sulfate 325 mg PO BID #20 tablet 05/03/15 Penicillin VK [Penicillin VK Tab] 250 mg PO Q8 #15 tab 08/27/15 Famotidine [Pepcid] 20 mg PO Q12 #20 tab 09/02/15 Erythromycin 0.5% [Ilytocin] 1 inch OS HS #1 tube 12/07/15 Non-Formulary 1 ea OS HS #1 ea 12/07/15 Valacyclovir HCl [Valtrex] 1,000 mg PO TID #21 tablet 12/07/15 predniSONE [Prednisone] 60 mg PO DAILY 10 Days tab 12/07/15 Sertraline [Zoloft] 100 mg PO DAILY #7 tab 03/05/16 Acetaminophen [Pain Reliever] 500 mg PO Q4 #30 tablet 11/17/16 Naproxen [Naprosyn] 500 mg PO BID PRN #15 tablet 12/29/16 Metoclopramide [Reglan] 10 mg PO Q6 PRN #20 tab 05/01/17 Naproxen [Naprosyn] 500 mg PO BID #20 tab 05/01/17 Naproxen [Naprosyn] 500 mg PO Q12 PRN #20 tablet 11/12/17 Albuterol 0.083% [Albuterol 0.083% 3 ml IH Q6H PRN #30 neb 02/16/18 Inhal Marta (2.5 mg/3 ml) UD] ALPRAZolam [Xanax] 1 tab PO TID #6 tab 03/22/18 - Allergies Allergies/Adverse Reactions: Allergies Allergy/AdvReac Type Severity Reaction Status Date / Time No Known Allergies Allergy Verified 05/14/18 18:21 Review of Systems ROS Statement: Except As Marked, All Systems Reviewed And Found Negative Respiratory: Positive for: Shortness of Breath Psych: Positive for: Anxiety. Negative for: Suicidal ideation Physical Exam - Reviewed Nursing Documentation Reviewed: Yes Vital Signs Reviewed: Yes - Physical Exam Appears: Positive for: No Acute Distress Head Exam: Positive for: ATRAUMATIC, NORMOCEPHALIC Skin: Positive for: Normal Color, Warm, Dry Eye Exam: Positive for: Normal appearance, EOMI, PERRL Neck: Positive for: Normal, Painless ROM, Supple Cardiovascular/Chest: Positive for: Regular Rate, Rhythm. Negative for: Murmur Respiratory: Positive for: Normal Breath Sounds. Negative for: Respiratory Distress Gastrointestinal/Abdominal: Positive for: Normal Exam, Soft. Negative for: Tenderness Back: Positive for: Normal Inspection. Negative for: L CVA Tenderness, R CVA Tenderness, Vertebral Tenderness Extremity: Positive for: Normal ROM. Negative for: Pedal Edema, Deformity Neurological/Psych: Positive for: Awake, Alert, Oriented - ECG O2 Sat by Pulse Oximetry: 99 (RA) Pulse Ox Interpretation: Normal Medical Decision Making Medical Decision Making: Time: 1942 Impression: 28 y/o female presenting with anxiety Plan: -- EKG -- Urine Drug Screen -- Crisis Evaluation -- ED Urine -- ED Urine Dipstick Time: 2029 -- Patient declined crisis evaluation at this time. Patient is at no risk in being discharged home. Patient to be discharged home with a diagnosis of an anxiety attack. Patient instructed to follow up with her psychiatrist for further management. . Scribe Attestation: Documented by Patrice Mario, acting as a scribe Saundra Gamez MD. Provider Scribe Attestation: All medical record entries made by the Scribe were at my direction and personally dictated by me. I have reviewed the chart and agree that the record accurately reflects my personal performance of the history, physical exam, med ica decision making, and the department course for this patient. I have also personally directed, reviewed, and agree with the discharge instructions and disposition. Disposition - Clinical Impression Clinical Impression: Anxiety attack - Disposition Disposition: Routine/Home Disposition Time: 20:30 Condition: STABLE Instructions: Anxiety, Adult (DC) Forms: [employer] (Taiwanese)
[2018-05-14 21:57] VITALS: BP 135/74; PULSE 71
--- NOTE | 2018-05-15 12:21 | CARD ---
APPROVED REPORT Date of service: 05/14/2018 EKG Measurement Heart [id number] <Conclusion> Normal sinus rhythm with sinus arrhythmia Normal ECG
== END 2018-05-14 20:15 | disposition home or self-care (01) ==
LOC: H.ER 18:16
DX: F41.9 Anxiety disorder, unspecified (principal); E03.9 Hypothyroidism, unspecified; F32.9 Major depressive disorder, single episode, unspecified; I10 Essential (primary) hypertension

== ENCOUNTER 2018-06-16 10:56 | Emergency (ER) | payer OTHER ==
[2018-06-16 11:01] VITALS: RESP 16; TEMP 98.6; O2SAT 100
[2018-06-16 11:02] VITALS: BMI 32.3
[2018-06-16 11:45] VITALS: BP 119/76; PULSE 70
--- NOTE | 2018-06-16 11:55 | ED PDOC ---
HPI: General Adult Time Seen by Provider: 06/16/18 11:15 Chief Complaint (Nursing): Anxiety Chief Complaint (Provider): Anxiety History Per: Patient History/Exam Limitations: no limitations Onset/Duration Of Symptoms: Hrs Current Symptoms Are (Timing): Gone Now Additional Complaint(s): 28 year old female with a past medical history of anxiety and depression who is presenting to the ED for evaluation of an anxiety attack onset this morning. Patient states that she takes Xanax x2 every morning and evening and reports that she takes Ambient at night. She admits that she took her Ambient with her Xanax this morning by accident and she became very nervous about overdosing. She reports that her body started shaking and admits that episode was similar to anxiety attacks in the past. Patient denies any chest pain, shortness of breath, headache, or difficulty walking. Pt denies SI/HI, visual or auditory hallucinations PMD: Leonardo Burns I Past Medical History Reviewed: Historical Data, Nursing Documentation, Vital Signs Vital Signs: Last Vital Signs Temp 98.6 F 06/16/18 11:00 Pulse 70 06/16/18 11:45 Resp 16 06/16/18 11:45 BP 119/76 06/16/18 11:45 Pulse Ox 100 06/16/18 11:45 - Medical History PMH: Anemia, Anxiety, Depression, Hypothyroidism Denies: Diabetes, Hepatitis, HIV, HTN, Chronic Kidney Disease, Seizures, Sexually Transmitted Disease - Surgical History Surgical History: - Family History Family History: States: Hypertension - Social History Current smoker - smoking cessation education provided: Yes Alcohol: None Drugs: Denies - Immunization History Hx Tetanus Toxoid Vaccination: No Hx Influenza Vaccination: No Hx Pneumococcal Vaccination: No - Home Medications Home Medications: Ambulatory Orders Medication Instructions Recorded Sertraline HCl [Zoloft] 50 mg PO DAILY 09/25/14 Docusate Sodium [Colace] 100 mg PO BID #30 sgl 09/26/14 Ferrous Sulfate 325 mg PO BID #60 tab 09/26/14 Ferrous Sulfate 325 mg PO BID #20 tablet 05/03/15 Penicillin VK [Penicillin VK Tab] 250 mg PO Q8 #15 tab 08/27/15 Famotidine [Pepcid] 20 mg PO Q12 #20 tab 09/02/15 Erythromycin 0.5% [Ilytocin] 1 inch OS HS #1 tube 12/07/15 Non-Formulary 1 ea OS HS #1 ea 12/07/15 Valacyclovir HCl [Valtrex] 1,000 mg PO TID #21 tablet 12/07/15 predniSONE [Prednisone] 60 mg PO DAILY 10 Days tab 12/07/15 Sertraline [Zoloft] 100 mg PO DAILY #7 tab 03/05/16 Acetaminophen [Pain Reliever] 500 mg PO Q4 #30 tablet 11/17/16 Naproxen [Naprosyn] 500 mg PO BID PRN #15 tablet 12/29/16 Metoclopramide [Reglan] 10 mg PO Q6 PRN #20 tab 05/01/17 Naproxen [Naprosyn] 500 mg PO BID #20 tab 05/01/17 Naproxen [Naprosyn] 500 mg PO Q12 PRN #20 tablet 11/12/17 Albuterol 0.083% [Albuterol 0.083% 3 ml IH Q6H PRN #30 neb 02/16/18 Inhal Marta (2.5 mg/3 ml) UD] ALPRAZolam [Xanax] 1 tab PO TID #6 tab 03/22/18 - Allergies Allergies/Adverse Reactions: Allergies Allergy/AdvReac Type Severity Reaction Status Date / Time No Known Allergies Allergy Verified 05/14/18 18:21 Review of Systems ROS Statement: Except As Marked, All Systems Reviewed And Found Negative Cardiovascular: Negative for: Chest Pain Respiratory: Negative for: Shortness of Breath Neurological: Negative for: Headache Psych: Positive for: Anxiety Physical Exam - Reviewed Nursing Documentation Reviewed: Yes Vital Signs Reviewed: Yes - Physical Exam Comments: GENERAL APPEARANCE: Patient is awake, alert, oriented x 3, in no acute distress. SKIN: Warm, dry; (-) cyanosis HEAD: (-) scalp swelling, (-) scalp tenderness. EYES: (-) conjunctival pallor, (-) scleral icterus, (-) nystagmus. ENMT: Mucous membranes moist. Airway patent: (-) stridor. NECK: (-) tenderness, (-) stiffness, (-) lymphadenopathy. HEART AND CARDIOVASCULAR: (-) irregularity; (-) murmur, (-) gallop. CHEST AND RESPIRATORY: (-) rales, (-) rhonchi, (-) wheezes; breath sounds equal. ABDOMEN: Soft, (-) distention, (-) tenderness, (-) guarding. NEURO AND PSYCH: Mental status as above. Affect: flat journalists and other writers: Intact. Pupils equal and reactive; EOMI; (-) facial asymmetry; tongue and uvula midline. Strength and DTRs symmetric. - ECG O2 Sat by Pulse Oximetry: 100 (RA) Pulse Ox Interpretation: Normal Medical Decision Making Medical Decision Making: Time: 11:20 Patient states that she has appointment with PMD in 2 days and reports that she is ready to go and is feeling fine. Her vitals are stable and presentation to ED is consistent with anxiety attack. Patient declines crisis evaluation and will be discharged home. Discussed diagnosis, treatment, return precautions and f/u with pt who is understanding, in agreement and stable for dc Scribe Attestation: Documented by Juliet Walters, acting as a scribe for Noel Martinez. Provider Scribe Attestation: All medical record entries made by the Scribe were at my direction and personally dictated by me. I have reviewed the chart and agree that the record accurately reflects my personal performance of the history, physical exam, medical decision making, and the department course for this patient. I have also personally directed, reviewed, and agree with the discharge instructions and disposition. Disposition - Clinical Impression Clinical Impression: Anxiety - Patient ED Disposition Is Patient to be Admitted: No Counseled Patient/Family Regarding: Studies Performed, Diagnosis, Need For Followup - Disposition Referrals: Leonardo Burns MD [Family Provider] - Disposition: Routine/Home Disposition Time: 11:36 Condition: STABLE Additional Instructions: Thank you for letting us take care of you today. You were treated for anxiety. The emergency medical care you received today was directed at your acute symptoms. If you were prescribed any medication, please fill it and take as directed. It may take several days for your symptoms to resolve. Return to the Emergency Department if your symptoms worsen, do not improve, or if you have any other problems. Please contact your doctor in 2 days for re-evaluation and follow up / or call one of the physicians/clinics you have been referred to that are listed on the Patient Visit Information form that is included in your discharge packet. Bring any paperwork you were given at discharge with you along with any medications you are taking to your follow up visit. Our treatment cannot replace ongoing medical care by a primary care provider (PCP) outside of the emergency department. Instructions: Anxiety, Adult (DC) Forms: [employer] ([place]) Print Language: MONTSERRATIAN - POA Present On Arrival: None
== END 2018-06-16 11:36 | disposition home or self-care (01) ==
LOC: H.ER 10:56
DX: F41.9 Anxiety disorder, unspecified (principal); E03.9 Hypothyroidism, unspecified

== ENCOUNTER 2018-06-30 19:56 | Emergency (ER) | payer OTHER ==
[2018-06-30 19:56] VITALS: BMI 32.3
[2018-06-30 20:02] VITALS: RESP 16; O2SAT 100
[2018-06-30] MEDS ORDERED: Albuterol-Ipratrop 3 mg / 0.5 (3 ml) UD IH STA (20:28)
--- NOTE | 2018-06-30 20:32 | ED PDOC ---
HPI: Psych/Substance Abuse Time Seen by Provider: 06/30/18 20:07 Chief Complaint (Nursing): Anxiety Chief Complaint (Provider): anxiety History Per: Patient History/Exam Limitations: no limitations Onset/Duration Of Symptoms: Hrs Current Symptoms Are (Timing): Still Present Additional Complaint(s): 28 y/o female brought history of anxiety, depression, asthma brought in by EMS for evaluation of anxiety x 4 hours. Patient admits to feeling "stressed" about running out of her Ambien medication today and does not have an appointment to see her psychiatrist until Thursday. Patient states she then began to feel acutely short of breath, which she states is consistent with her previous anxiety attacks. Patient states she takes Xanax 0.5mg two tablets in the am and two tablets in the pm; patient states she took them around 15:00 and then took an extra one at 18:00 along with a nebulizer treatment to see if it would help with her symptoms. Patient denies headache, dizziness, extremity numbness/weakness, cough, congestion, chest pain, palpitations, leg pain/swelling, suicidal/homicidal ideations Past Medical History Reviewed: Historical Data, Nursing Documentation, Vital Signs Vital Signs: Last Vital Signs Temp 98.6 F 06/30/18 20: Pulse 77 06/30/18 20:01 Resp 16 06/30/18 20:01 BP 133/91 H 06/30/18 20: Pulse Ox 100 06/30/18 20:01 Primary Care Provider: FAMILY PROVIDER,NO - Medical History PMH: Anemia, Anxiety, Asthma, Depression, Hypothyroidism Denies: Diabetes, Hepatitis, HIV, HTN, Chronic Kidney Disease, Seizures, Sexually Transmitted Disease - Surgical History Surgical History: - Family History Family History: States: Unknown Family Hx, Hypertension - Immunization History Hx Tetanus Toxoid Vaccination: No Hx Influenza Vaccination: No Hx Pneumococcal Vaccination: No - Home Medications Home Medications: Ambulatory Orders Medication Instructions Recorded Sertraline HCl [Zoloft] 50 mg PO DAILY 09/25/14 Docusate Sodium [Colace] 100 mg PO BID #30 sgl 09/26/14 Ferrous Sulfate 325 mg PO BID #60 tab 09/26/14 Ferrous Sulfate 325 mg PO BID #20 tablet 05/03/15 Penicillin VK [Penicillin VK Tab] 250 mg PO Q8 #15 tab 08/27/15 Famotidine [Pepcid] 20 mg PO Q12 #20 tab 09/02/15 Erythromycin 0.5% [Ilytocin] 1 inch OS HS #1 tube 12/07/15 Non-Formulary 1 ea OS HS #1 ea 12/07/15 Valacyclovir HCl [Valtrex] 1,000 mg PO TID #21 tablet 12/07/15 predniSONE [Prednisone] 60 mg PO DAILY 10 Days tab 12/07/15 Sertraline [Zoloft] 100 mg PO DAILY #7 tab 03/05/16 Acetaminophen [Pain Reliever] 500 mg PO Q4 #30 tablet 11/17/16 Naproxen [Naprosyn] 500 mg PO BID PRN #15 tablet 12/29/16 Metoclopramide [Reglan] 10 mg PO Q6 PRN #20 tab 05/01/17 Naproxen [Naprosyn] 500 mg PO BID #20 tab 05/01/17 Naproxen [Naprosyn] 500 mg PO Q12 PRN #20 tablet 11/12/17 Albuterol 0.083% [Albuterol 0.083% 3 ml IH Q6H PRN #30 neb 02/16/18 Inhal Marta (2.5 mg/3 ml) UD] ALPRAZolam [Xanax] 1 tab PO TID #6 tab 03/22/18 - Allergies Allergies/Adverse Reactions: Allergies Allergy/AdvReac Type Severity Reaction Status Date / Time No Known Allergies Allergy Verified 06/30/18 20:06 Review of Systems ROS Statement: Except As Marked, All Systems Reviewed And Found Negative Respiratory: Positive for: Shortness of Breath Psych: Positive for: Anxiety Physical Exam - Reviewed Nursing Documentation Reviewed: Yes Vital Signs Reviewed: Yes - Physical Exam Appears: Positive for: Well, Non-toxic, No Acute Distress Head Exam: Positive for: ATRAUMATIC, NORMAL INSPECTION, NORMOCEPHALIC Skin: Positive for: Normal Color Eye Exam: Positive for: Normal appearance ENT: Positive for: Normal ENT Inspection Cardiovascular/Chest: Positive for: Regular Rate, Rhythm Respiratory: Positive for: Normal Breath Sounds Gastrointestinal/Abdominal: Positive for: Normal Exam Back: Positive for: Normal Inspection Extremity: Positive for: Normal ROM Neurological/Psych: Positive for: Awake, Alert, Oriented (x3) - ECG ECG: Positive for: Viewed By Me (reviewed by ED attending) ECG Rhythm: Positive for: Sinus Rhythm O2 Sat by Pulse Oximetry: 100 - Progress ED Course And Treament: -upreg -ekg -duoneb On re-eval, patient states she feels slight improvement Patient offered crisis eval but declines; states she has appt on Thursday with her psychiatrist and will address issues then. Patient educated on findings, discharged with instructions to follow up at scheduled appointment Return precautions given Disposition - Clinical Impression Clinical Impression: Anxiety - Patient ED Disposition Is Patient to be Admitted: No Counseled Patient/Family Regarding: Studies Performed, Diagnosis, Need For Followup - Disposition Disposition: Routine/Home Disposition Time: 22:07 Condition: IMPROVED Instructions: Anxiety, Adult (DC)
[2018-06-30] MEDS ORDERED: Albuterol 0.083% Inhal Sol (2.5 mg/3 mL) UD ONE (21:27)
[2018-06-30] MEDS ORDERED: Albuterol-Ipratrop 3 mg / 0.5 (3 ml) UD ONE (21:33)
[2018-06-30] MEDS ORDERED: Oxycodone/Acetaminophen 5/325 mg Tab PO ONE (22:05)
[2018-06-30 22:16] VITALS: BP 121/70; TEMP 98.1
[2018-06-30 22:58] VITALS: PULSE 78
--- NOTE | 2018-07-01 08:57 | CARD ---
APPROVED REPORT Date of service: 06/30/2018 EKG Measurement Heart [id number] <Conclusion> Normal sinus rhythm with sinus arrhythmia Normal ECG
== END 2018-06-30 22:49 | disposition home or self-care (01) ==
LOC: H.ER 19:56
DX: F41.9 Anxiety disorder, unspecified (principal)